=== PATIENT | female | born 1950 | race Caucasian/White ===

== ENCOUNTER 2024-05-24 01:12 | Observation (INO) | payer MEDICARE, OTHER, SELFPAY ==
[2024-05-23 23:23] VITALS: BP 141/94
[2024-05-23 23:24] VITALS: BP 141/94; BMI 27.0
--- NOTE | 2024-05-23 23:43 | ED.GENMED ---
History of Present Illness
General
Chief Complaint: DVT/Possible Blood Clot
Time Seen by Provider: 05/23/24 23:32
History of Present Illness
History of Present Illness:
TIME OF INITIAL ENCOUNTER: 11:50 PM
HPI: The patient came in because of an abnormal ultrasound that showed a DVT in the right lower extremity. The patient had wrist surgery about 6 weeks ago and also was placed in a knee immobilizer to the right lower extremity at that time. She
developed right lower extremity pain and swelling and had an ultrasound that was abnormal. She has no shortness of breath.
EXAM:
GENERAL: Well appearing in no distress
HEENT: Moist oral mucosa
NEUROLOGIC: Excellent strength all extremities, no obvious coordination deficits
PSYCHIATRIC: Appropriate mental status, normal insight and judgement
EXTREMITIES: Splint to the left wrist noted, slightly tight compartments with edema and faint erythema diffusely to the right lower extremity
SKIN: No rash, no lesions
NUMBER AND COMPLEXITY OF PROBLEMS ADDRESSED AT THE ENCOUNTER
� Chronic conditions affecting care: High blood pressure, breast cancer
� Acute Exacerbation and/or Progression of Chronic Illness: This is an acute problem
� Differential Diagnosis includes: DVT, the patient has no shortness of breath that would suggest that she has a PE
AMOUNT AND/OR COMPLEXITY OF DATA TO BE REVIEWED AND ANALYZED
� I performed an independent evaluation of and my interpretation is:
EKG:
CT:
X-rays:
Laboratory Studies: White count and hemoglobin are normal, chemistries unremarkable, coags normal
Other:
� Review of other/old records: I reviewed the records from [facility] when patient had extensive orthopedic injuries
� Clinical information was obtained by an independent historian: None needed
� Prescriptions/Medications Considered but not given:
� Further testing considered but not performed:
RISK OF COMPLICATIONS AND/OR MORBIDITY OR MORTALITY OF PATIENT MANAGEMENT
� Social determinants of health affecting care:
� Discussion with other providers: I discussed case with hematology on-call who suggested that this patient could be managed either with heparin or as an outpatient.
� Escalation of care including admission/observation vs risk of discharge considered: Consider just discharging with a DOAC however the patient also reports that she is concerned if her prescription plan will cover this. I am
also concerned that this is a proximal occlusive clot with abnormal right lower extremity findings on exam. Was going to place on heparin however Dr. Lunsford recommends Lovenox instead.
ANY OTHER UPDATES:
Phy Exam
Physical Exam
Physical Exam:
See HPI
Course
Orders/Labs/Results
Orders:
Orders
05/23/24 23:42
Complete Blood Count/With Diff Urgent
Comprehensive Metabolic Panel Urgent
Protime/PTT Urgent
05/24/24 00:16
Heparin 5,500 units IV NOW STA
Pharmacy Request to Place See Dose Instructions PO NOW STA
Discontinue all Active Warfarin orders?: Yes
05/24/24 00:30
Heparin 91832 Units/250 ml 25,000 units in 250 ml IV PER PROTOCOL
Weight to be used for heparin protocol in kilograms (kg):: 69.1
Protocol:: DVT/PE
PTT Goal Range to be used:: PTT 73 to 111 seconds
Order type:: Initial
INITIAL Infusion Dose (UNITS/KG/hr) & then follow protocol:: 18 units/kg/hr
Infusion Dose in UNITS/hr & then follow protocol (UNITS/hr):: 1,200
INFUSION RATE in mL/hr & then follow protocol (mL/hr):: 12
For DVT/PE algorithm, re-bolus for low PTT?: Yes
PTT less than or equal to 64 seconds:: Re-bolus 80 units/kg (max 10,000units). Increase by 300 units/hr
(+ 3mL/hr)
PTT 64.1 to 72.9 seconds:: Re-bolus 40 units/kg (max 5,000 units). Increase by 100 units/hr
(+ 1mL/hr)
PTT 73 to 111 seconds:: Target Range. No change in rate.
PTT 111.1 to 130.9 seconds:: Decrease rate by 100 units/hr (- 1 mL/hr)
PTT 131 to 199.9 seconds:: HOLD for 1 hr. Then decrease by 200 units/hr (- 2mL/hr)
PTT greater than or equal to 200 seconds:: HOLD for 2 hrs & Notify Provider. Then decrease by 300 units/hr
(- 3mL/hr)
Lab follow-up:: Each change, PTT q6h until 2 consecutive are therapeutic. Then
PTT daily.
05/24/24 00:57
Admit/Transfer Patient As Directed
Co-Sign Provider:
Level of Care: Observation services
Assign to:: Medical/Surgical
Physician / Group: hospitalist
Diagnosis: DVT
PRN Pain Medication Management As Directed
May give lesser potent ordered pain med per pt: Yes
preference::
Protocol:: Medication orders for pain may be administered in a
manner that supports deferring to patient preference
when the pt is:
- Requesting an ordered lesser potent pain medication.
Least to most potent pain medications are defined
as: acetaminophen < NSAID < tramadol < opioids
(morphine, oxycodone, hydromorphone).
- Requesting a lesser dose of the same medication IF
ORDERED.
- Requesting a less intrusive route of administration
if both routes are prescribed by the provider (PO <
IV).
05/24/24 00:58
Code Status As Directed
Resuscitation Status: Full Code
05/24/24 01:00
Enoxaparin Sodium [Lovenox] 80 mg SC NOW STA
Pharmacy Request to Place See Dose Instructions IV DIRECTED
05/24/24 02:00
Flush (0.9% Sodium Chloride) [Flush (Nss)] See Dose Instructions IV PER PROTOCOL
Abnormal Lab Results
05/23/24
23:42
RBC 4.13 L 10^6/uL
(4.20-5.40)
Hct 36.6 L %
(37.0-47.0)
Creatinine 0.5 L mg/dL
(0.6-1.0)
Glucose 103 H mg/dl
(70-99)
05/23/24 23:42
05/23/24 23:42
Vital Signs
Initial and Last Documented VS:
Initial Vital Signs
BP
141/94
05/23/24 23:23
Last Documented Vital Signs
Temp Pulse Resp BP Pulse Ox
36.5 C 73 12 142/78 97
05/23/24 23:24 05/24/24 00:45 05/24/24 00:45 05/24/24 00:00 05/24/24 00:45
*Critical Care Note
Total Time (30-74mins, 75-104mins- exclusive of procedures): Not Applicable
ED Attending Note
-
Portions of this chart may have been created with voice recognition software.� Occasional wrong word or��sound alike� substitutions may have occurred due to the inherent limitations of voice recognition software.
Discharge Plan
Departure
Patient Disposition: Admit
Date of Disposition: 05/24/24
Time of Disposition: 00:19
Presentation/result/management discussed w/ accepting MD/DO: Hospitalist
Discharge Problem:
Deep vein thrombosis
Prescriptions:
No Action
anastrozole 1 mg Tablet
1 mg PO DAILY
polyethylene glycol 3350 [Miralax] 17 gram Powder In Packet
17 g PO DAILY
oxycodone 5 mg Tablet
5 mg PO Q4H PRN (Reason: moderate pain)
docusate sodium 100 mg Capsule
100 mg PO BID 30 Days Qty: 60 0RF
baclofen 5 mg Tablet
5 mg PO TIDPRN PRN (Reason: muscle spasms) 30 Days Qty: 90 0RF
lidocaine 4 % Adhesive Patch,Medicated
1 patch topical DAILY 30 Days Qty: 30 0RF
enoxaparin 40 mg/0.4 mL Syringe
40 mg SC QPM 30 Days Qty: 12 0RF
baclofen 5 mg Tablet
5 mg PO HS 30 Days Qty: 30 0RF
alum-mag hydroxide-simeth [Mag-Al Plus] 200-200-20 mg/5 mL Suspension
30 ml PO QIDPRN PRN (Reason: reflux symptoms) 30 Days Qty: 3000 0RF
pantoprazole 20 mg Tablet,Delayed Release (Dr/Ec)
20 mg PO DAILY 30 Days Qty: 30 0RF
gabapentin 100 mg Capsule
100 mg PO TID 30 Days Qty: 90 0RF
multivitamin with folic acid [Tab-A-Carol] 400 mcg Tablet
1 tab PO DAILY 30 Days Qty: 30 0RF
acetaminophen 325 mg Tablet
650 mg PO Q4HPRN PRN (Reason: mild pain) 30 Days Qty: 90 0RF
cyanocobalamin (vitamin B-12) 1,000 mcg Tablet
1,000 mcg PO DAILY 30 Days Qty: 30 0RF
celecoxib [Celebrex] 200 mg Capsule
200 mg PO DAILY Qty: 0 0RF
cholecalciferol (vitamin D3) 25 mcg (1,000 unit) Capsule
25 mcg PO DAILY Qty: 0 0RF
duloxetine [Cymbalta] 20 mg Capsule,Delayed Release(Dr/Ec)
40 mg PO DAILY Qty: 0 0RF
Referrals:
Diallo Molina DO [Family Provider] -
Interventions
Interventions:
*Risk Screen - Suicide Last Done: 05/23/24 23:24
*General Assessment Last Done: 05/23/24 23:24
*Neglect/Abuse Screening Last Done: 05/23/24 23:24
*ED COVID-19 Vaccine History Last Done: 05/23/24 23:24
ED- Cardiac Assessment Last Done: 05/23/24 23:49
ED- Pulmonary Assessment Last Done: 05/23/24 23:50
ED-Peripheral Vascular Assessment Last Done: 05/23/24 23:50
ED-Skin Assessment Last Done: 05/23/24 23:50
Discharge Date and Time
Print Language: SYRIAC
[2024-05-23 23:54] LABS: % Basophils 0.3 % (0-2); % Eosinophils 3.2 % (0-6); % Immature Granulocytes 0.2 % (0-0.5); % Neutrophils 54.3 % (42.2-75.2); Absolute Eosinophils 0.2 10^3/uL (0-0.7); Absolute Lymphocytes 2.2 10^3/uL (1.2-3.4); Absolute Monocytes 0.6 10^3/uL (0.1-0.6); Absolute Neutrophils 3.6 10^3/uL (1.4-6.5); Hematocrit 36.6 % (37.0-47.0); Hemoglobin 12.5 g/dL (12.0-16.0); Mean Corp Hgb Conc. 34.2 g/dL (33.0-37.0); Mean Corpuscular Hgb 30.3 pg (27.0-31.0); Mean Corpuscular Volume 88.6 fL (81.0-99.0); Mean Platelet Volume 9.6 fL (7.4-10.4); Nucleated Red Blood Cells % 0 %; Platelet Count 262 10^3/uL (130-400); Red Blood Cell Count 4.13 10^6/uL (4.20-5.40); White Blood Cell Count 6.7 10^3/uL (4.8-10.8)
[2024-05-24] VITALS (9 sets, daily range): BP systolic 107–143; BP diastolic 66–82
[2024-05-24 00:03] LABS: INR 0.97; PT 13.2 Sec (11.4-14.6)
[2024-05-24 00:10] LABS: ALT (SGPT) 16 U/L (0-35); AST (SGOT) 20 U/L (14-36); Albumin 4.6 g/dl (3.5-5.0); Alkaline Phosphatase 117 U/L (38-126); Blood Urea Nitrogen 12 mg/dl (7-17); Calcium 9.6 mg/dl (8.4-10.2); Carbon Dioxide 26 mmol/L (22-30); Chloride 103 mmol/L (98-107); Estimated Creatinine Clearance 74 ml/min; Glucose 103 mg/dl (70-99); Sodium 138 mmol/L (135-145); Total Bilirubin 0.6 mg/dl (0.2-1.3); Total Protein 7.6 g/dl (6.3-8.2); eGFR > 60.00
--- NOTE | 2024-05-24 00:46 | HPS.HSE ---
Family Physician
-
Family Physician: Diallo Molina,
Chief Complaint
-
Right lower extremity swelling, DVT
History of Present Illness
This is a 74-year-old with past medical history significant for vertigo, hypertension, hyperlipidemia, nephrolithiasis, history of breast cancer status post lumpectomy and XRT, GERD, recent fall with multifocal trauma including a right patella
fracture, right wrist fracture left wrist fracture and bilateral shoulder injuries will presents to the emergency department from care home for swelling of the right lower extremity in the setting of approximately 1 months of immobilization.
Patient had an immobilization nonstop for the past 6 weeks for a patella fracture that was managed nonoperatively. She was on enoxaparin for about 4 weeks and then discontinued. Patient stated that she just had the immobilizer removed today and
she still has about 1 weeks ago for rehab. She has not had any vertigo recently. She denies any head injuries or history of GI bleed.
She had an outpatient ultrasound that showed nonocclusive thrombus within the common femoral vein as well as the distal right superficial femoral vein, occlusive thrombus in the femoral vein. She has no chest pain or shortness of breath.
Here in the emergency department she was afebrile, blood pressure was 140/90 with a pulse of 76 satting 98% on room air. CBC was unremarkable. Electrolytes BUN/creatinine were stable. No acute abnormalities noted.
Medical History
Past Medical History
Past Medical History: Reports CAD (Breast cancer status post lumpectomy), COPD (Emphysema, prior smoker not on home O2), HTN and Other (Nephrolithiasis, vertigo)
Past Surgical History: Reports Orthopedic
Social History
Tobacco: Smoker
Alcohol: Occasional
Drug: None
Personal:
Living: With Family (Currently in rehab after a fall, planning to live with family after completion of rehab)
Family History
Family History: Not pertinent
Allergies / Home Medications
Allergies reflects when Allergies were last updated in [facility].
Home Medications with original date entered in [facility]
Allergy/Medication List:
Allergies
Allergy/AdvReac Type Severity Reaction Status Date / Time
bee venom protein (honey bee) Allergy Intermediate Anaphylaxis Verified 05/23/24 23:23
Home Medications
anastrozole 1 mg tablet 1 mg PO DAILY 03/30/24
oxycodone 5 mg tablet 5 mg PO Q4H PRN moderate pain 03/30/24
polyethylene glycol 3350 17 gram oral powder packet (Miralax) 17 g PO DAILY 03/30/24
acetaminophen 325 mg tablet 650 mg (2 x 325 mg) PO Q4HPRN PRN mild pain 30 days #90 tabs 04/07/24
aluminum-mag hydroxide-simethicone 200 mg-200 mg-20 mg/5 mL oral susp (Mag-Al Plus) 30 ml PO QIDPRN PRN reflux symptoms 30 days #3,000 mL 04/07/24
baclofen 5 mg tablet 5 mg PO HS spasms 30 days #30 tabs 04/07/24
baclofen 5 mg tablet 5 mg PO TIDPRN PRN muscle spasms 30 days #90 tabs 04/07/24
celecoxib 200 mg capsule (Celebrex) 200 mg PO DAILY Pain #0 caps 04/07/24
cholecalciferol (vitamin D3) 25 mcg (1,000 unit) capsule 25 mcg PO DAILY Supplement #0 caps 04/07/24
cyanocobalamin (vitamin B-12) 1,000 mcg tablet 1,000 mcg PO DAILY Supplement 30 days #30 tabs 04/07/24
docusate sodium 100 mg capsule 100 mg PO BID Constipation 30 days #60 caps 04/07/24
duloxetine 20 mg capsule,delayed release (Cymbalta) 40 mg (2 x 20 mg) PO DAILY Mental Health/Anxiety #0 caps 04/07/24
enoxaparin 40 mg/0.4 mL subcutaneous syringe 40 mg (0.4 mL) SC QPM DVT Prophylasix while in SNF 30 days #12 mL 04/07/24
gabapentin 100 mg capsule 100 mg PO TID neuropathic pain 30 days #90 caps 04/07/24
lidocaine 4 % topical patch 1 patch topical DAILY Pain 30 days #30 ea 04/07/24
multivitamin with folic acid 400 mcg tablet (Tab-A-Carol) 1 tab PO DAILY Supplement 30 days #30 tabs 04/07/24
pantoprazole 20 mg tablet,delayed release 20 mg PO DAILY Gastrointestinal issue 30 days #30 tabs 04/07/24
Review of Systems
-
History Source: Patient
EENT: Reports No Symptoms
Respiratory: Reports No Symptoms
Cardiac: Reports No Symptoms
Abdomen/GI: Reports No Symptoms
: Reports No Symptoms
Musculoskeletal: Reports Joint Swelling
Skin: Reports No Symptoms
Neurological: Reports No Symptoms
Endocrine: Reports No Symptoms
Hematologic/Lymphatic: Reports No Symptoms
Psych: Reports No Symptoms
Physical Exam
Vital Signs
Vital Signs
Temp Pulse Resp BP Pulse Ox
97.7 F 76 19 141/94 94
05/23/24 23:24 05/23/24 23:45 05/23/24 23:45 05/23/24 23:24 05/23/24 23:45
Physical Exam
General: Well Developed, Well Nourished, No Apparent Distress and Comfortable
HEENT: NormoCephalic, Anicteric, Moist mucous membranes and Atraumatic
Respiratory: Clear
Cardiac: S1/S2 and Regular Rhythm
Breast: Deferred by me
GI: Soft, Non Tender, Non Distended and Normal Bowel Sounds
Rectal: Deferred by Provider
Genito-urinary: Deferred by me
Musculoskeletal: No Clubbing, No Cyanosis and Edema, Right Lower Extremity
Skin: Warm
Neuro: AO x 3 and Nonfocal/grossly intact
Hematologic/Lymphatic: No Lymphadenopathy
Psych: Calm
Laboratory Results
-
05/23/24 23:42
05/23/24 23:42
Laboratory Results
PT 13.2 Sec (11.4-14.6) 02/04/25 23:42
INR 0.97 05/23/24 23:42
APTT Cancelled 05/24/24 00:18
Total Bilirubin 0.6 mg/dl (0.2-1.3) 05/23/24 23:42
AST 20 U/L (14-36) 05/23/24 23:42
ALT 16 U/L (0-35) 05/23/24 23:42
Alkaline Phosphatase 117 U/L (38-126) 05/23/24 23:42
Data Reviewed
-
Ultrasound: Report Reviewed by me
Lab Data: Labs Reviewed by me
Old Records: Reviewed
Impression/Plan
-
IMPRESSION:
74 F with acute occlusive R lower extremity DVT in setting of a right patellar fracture managed non-operatively with 6 weeks of immobilizer just removed yesterday. Unclear if insurance will cover DOAC. Dr Burrows Ok with DOAC.
PLAN:
1. DVT - provoked DVT
- admit to med/surg observation
- no gi bleeding risk
- still mild possible fall risk
- lovenox 1mg/kg q 12 for now, AC for 3 months
- case filler to review if patient can go home on DOAC or transitioned to coumadin
Code Status - Full Code
[2024-05-24] MEDS: LOVENOX 70 MG SC (01:43)
[2024-05-24] MEDS: COLACE 100 MG PO (07:32)
[2024-05-24] MEDS: ARIMIDEX 1 MG PO (07:32)
[2024-05-24] MEDS: THERAGRAN 1 TABLET PO (07:32)
[2024-05-24] MEDS: PROTONIX 20 MG PO (07:33)
[2024-05-24] MEDS: VITAMIN D3 (cholecalciferol) 25 MCG PO (07:33)
[2024-05-24] MEDS: NEURONTIN 100 MG PO (07:33)
[2024-05-24] MEDS: VITAMIN B-12 1000 MCG PO (07:33)
[2024-05-24] MEDS: CELEBREX 200 MG PO (07:34)
[2024-05-24] MEDS: CYMBALTA DELAYED RELEASE 40 MG PO (07:34)
[2024-05-24] MEDS: ROXICODONE 5 MG PO (07:38)
[2024-05-24] MEDS: ELIQUIS 10 MG PO (08:17)
--- NOTE | 2024-05-24 09:32 | W.PN.HOSP.TC ---
Addendum entered and electronically signed by Esthela Tan MD 05/24/24 15:45:
total DC time 45 min
Original Note:
Today's Communication/Plan
-
see A/P
Assessment / Plan
Assessment / Plan
HPI: 74-year-old with PMH vertigo, hypertension, hyperlipidemia, nephrolithiasis, history of breast cancer status post lumpectomy and XRT, GERD, recent fall with multifocal trauma including a right patella fracture, right wrist fracture, left wrist
fracture and bilateral shoulder injuries; p/w swelling of the right lower extremity in the setting of approximately 1 months of immobilization.
Patient was wearing an immobilization for the past 6 weeks for her patella fracture that was managed nonoperatively. She was on enoxaparin for about 4 weeks and then discontinued.
Patient just had the immobilizer removed the day [facility]. She had an outpatient ultrasound that showed nonocclusive thrombus within the common femoral vein as well as the distal right superficial femoral vein, occlusive thrombus in the femoral vein.
She has no chest pain or shortness of breath.
A/P:
# Acute provoked RLE DVT 2/2 immobilization from recent patella fracture
switch Lovenox 1mg/kg q12 to Eliquis (high dose 10 mg BID x7 days, then 5 mg BID for 3 months)
nurse case manager to review cost of Eliquis
# recent fall with multifocal trauma including a right patella fracture, right wrist fracture, left wrist fracture and bilateral shoulder injuries
Code Status - Full Code
updated daughter on the phone
Anticipated Discharge: Within 24 hours
Subjective/Interval History
-
Date of Service: May 24, 2024
Objective Data
-
Labs:
Laboratory Results
05/23/24 05/24/24
23:42 00:18
WBC 6.7
Hgb 12.5
Hct 36.6 L
Plt Count 262
PT 13.2
INR 0.97
APTT 26.0 Cancelled
Sodium 138
Potassium 4.0
Chloride 103
Carbon Dioxide 26
BUN 12
Creatinine 0.5 L
Glucose 103 H
Calcium 9.6
Total Bilirubin 0.6
AST 20
ALT 16
Alkaline Phosphatase 117
Vital Signs:
Vital Signs
Temp Pulse Resp BP Pulse Ox
36.5 C 68 21 122/80 94
05/23/24 23:24 05/24/24 07:15 05/24/24 07:15 05/24/24 07:00 05/24/24 03:30
Review of Systems
-
Musculoskeletal: Reports Other (R leg mild swelling )
Physical Exam
-
General: Well Developed, Well Nourished, No Apparent Distress, Comfortable and Conversant; Negative Respiratory Distress
HEENT: Normocephalic, Atraumatic, Nose Appears Normal and Ears Appear Normal; Negative Oxygen
Respiratory: Clear to Auscultation and Non Labored Respirations; Negative Accessory Resp Muscle Use
Cardiac: Regular Rhythm and S1/S2
GI: Soft, Nontender, Nondistended and Normal Bowel Sounds
Musculoskeletal: Edema, Right Lower Extrem (mild)
Skin: Warm and Dry
Neuro: Awake, Alert, Oriented and AO x 3
Psych: Calm and Intact Judgement/Insight
Data Reviewed
-
Labs: Labs Reviewed by me
--- NOTE | 2024-05-24 10:46 | CM ---
Patient from [facility] with Hx recent fall with multifocal trauma including a right patella fracture, right wrist fracture, left wrist fracture and bilateral shoulder injuries, here with Dx RLE DVT.
Met with patient who states she rotates every 6 months residing with her 3 daughters in their homes.
She was recently staying with her daughter in [facility] however will be going to daughter Clary's 2 story house in [place] when discharged from [facility], and staying in bedroom on first floor. House has 2 small steps at entrance.
She was independent prior to the fall, which she says was caused by her vertigo when bending over.
Patient says she was admitted to [facility] after the fall, then discharged to [facility] then went to [facility].
DME - RW, rollator, commode, shower bench
No prior VN
Only SNF was [place]
Prior [facility]
PCP - Dr Alejandro in [place]
Pharmacy - [facility]
CM Consult: Eliquis [facility] Check
Per [facility] ambulatory orders: cost through [facility] $562.70/month, [facility] $759.20 90 day supply
Spoke with pharmacist [facility]; she does not have patient's prescription plan info. Cost is $444.40 for 14 day supply while at [facility].
Patient says she has [facility] Pharm[facility] Plan but doesn't have her prescription card with her.
Phone call to [facility] x2; left messages requesting callback for Eliquis cost under her prescription plan --->no callback.
Patient agrees to Eliquis cost and may try to check cheapest chacon on [facility], she was given Eliquis Free Month Card.
Patient agrees to return to [facility] today by ambulance.
Phone call to Clary, patient's daughter; left message patient will be returning to [facility] today by ambulance.
Spoke with Ju, [facility];
the patient was there for short term rehab and was not on a bed hold.
She was A/O, required assist of 1 and had WBAT status.
The ph for report [phone], fax [phone].
Plan return to [facility] today by ambulance.
S
--- NOTE | 2024-05-24 11:03 | EDRN ---
report phoned to [facility] - spoke with Natalia
--- NOTE | 2024-05-24 15:36 | W.DCSUMMARY ---
Discharge Summary
Discharge Data
Date of Admission: 05/24/24
Date of Discharge: 05/24/24
-
Pending Results: No
Hospital Course
Principal Diagnosis:
Acute provoked right lower extremity (RLE) deep vein thrombosis (DVT) due to immobilization from recent fall with patella fracture
Chronic Diagnoses:�
Recent fall with multifocal trauma including right patella fracture, right wrist fracture, left wrist fracture and bilateral shoulder injuries
vertigo,
hypertension,
hyperlipidemia,
nephrolithiasis,
history of breast cancer status post lumpectomy and XRT,
GERD
Consultations:�
None
Procedures:�
None
Clinical course:�
This is a 74-year-old with past medical history as stated above, who had a recent fall resulting in right patella fracture and had been immobile with a knee immobilizer for the past several weeks, presented with right lower extremity swelling and
found to have acute provoked DVT.
Problem 1:
Acute provoked RLE DVT 2/2 immobilization from recent patella fracture.
The patient denies to any respiratory symptoms, and has good saturation 97% on exam.
She received therapeutic Lovenox SQ injection and this was changed to oral anticoagulation with Eliquis.
She has been informed to continue high-dose Eliquis at 10 mg twice daily for 7 days, then 5 mg twice daily for 3 months (given her DVT is provoked from immobility).
Cost of Eliquis is acceptable to patient.
She was cleared for discharge due to clinical stability.
As for the rest of her medical problems, they were stable during her hospital stay.
Discharge Plan
-
Patient Disposition: Skilled Nursing/SNF
Discharge Diagnosis/Procedures: R leg deep vein thrombosis due to immobilization
Condition: Fair
Diet: As tolerated
Activity: As tolerated
Driving Restrictions: Not until seen by your Dr
Blood Work: CBC in 1 week with PCP while on anticoagulation (Eliquis)
Referrals:
Diallo Molina, [Family Provider] - in less than 1 week
Additional Discharge Medication Instructions: Continue Eliquis 10 mg twice daily for 7 days, then 5 mg twice daily for 3 months
Prescriptions:
New
Eliquis 5 mg tablet
5 mg PO BID Qty: 60 0RF
Rx Instructions:
start 05/31/24, take 5 mg twice daily for 3 months
Eliquis 5 mg Tablet
10 mg PO BID 7 Days Qty: 28 0RF
oxycodone 5 mg capsule
5 mg PO BID PRN (Reason: Pain) Qty: 2 0RF
Continued
meloxicam 7.5 mg Tablet
7.5 mg PO DAILY
acetaminophen [Tylenol] 325 mg Tablet
650 mg PO Q6HPRN PRN (Reason: mild pain)
magnesium hydroxide [Milk of Magnesia] 400 mg/5 mL Suspension
2,400 mg PO [id number] PRN (Reason: constipation)
bisacodyl [Dulcolax (bisacodyl)] 10 mg Suppository
10 mg SD DAILYPRN PRN (Reason: if no bm aftr mom)
calcium carbonate [Tums] 200 mg calcium (500 mg) Tablet,Chewable
400 mg PO Q6HPRN PRN (Reason: gerd)
Fleet Enema 19-7 gram/118 mL Enema
118 ml SD DAILYPRN PRN (Reason: if no bm aftr dulcolax)
anastrozole 1 mg Tablet
1 mg PO DAILY
polyethylene glycol 3350 [Miralax] 17 gram Powder In Packet
17 g PO DAILY
docusate sodium 100 mg Capsule
100 mg PO BID 30 Days Qty: 60 0RF
baclofen 5 mg Tablet
5 mg PO TIDPRN PRN (Reason: muscle spasms) 30 Days Qty: 90 0RF
lidocaine 4 % Adhesive Patch,Medicated
1 patch topical DAILY 30 Days Qty: 30 0RF
Rx Instructions:
lower back
baclofen 5 mg Tablet
5 mg PO HS 30 Days Qty: 30 0RF
alum-mag hydroxide-simeth [Mag-Al Plus] 200-200-20 mg/5 mL Suspension
30 ml PO QIDPRN PRN (Reason: reflux symptoms) 30 Days Qty: 3000 0RF
pantoprazole 20 mg Tablet,Delayed Release (Dr/Ec)
20 mg PO DAILY 30 Days Qty: 30 0RF
gabapentin 100 mg Capsule
100 mg PO TID 30 Days Qty: 90 0RF
multivitamin with folic acid [Tab-A-Carol] 400 mcg Tablet
1 tab PO DAILY 30 Days Qty: 30 0RF
cyanocobalamin (vitamin B-12) 1,000 mcg Tablet
1,000 mcg PO DAILY 30 Days Qty: 30 0RF
cholecalciferol (vitamin D3) 25 mcg (1,000 unit) Capsule
25 mcg PO DAILY Qty: 0 0RF
duloxetine [Cymbalta] 20 mg Capsule,Delayed Release(Dr/Ec)
40 mg PO DAILY Qty: 0 0RF
Discontinued
oxycodone 5 mg Tablet
5 mg PO [id number] PRN (Reason: mod pain)
Discharge Orders:
Discharge Patient (As Directed); Ordered 05/24/24
Ordered By: Esthela Tan
Discharge Date and Time
Discharge Date/Time: 05/24/24 13:32
Print Language: BHUTANESE
== END 2024-05-24 13:32 ==
LOC: ED 01:12
PROVIDERS: Student in an Organized Health Care Education/Training Program; ADMITTING PHYSICIAN Internal Medicine; ATTENDING PHYSICIAN Internal Medicine; EMERGENCY PHYSICIAN Emergency Medicine; FAMILY PHYSICIAN Student in an Organized Health Care Education/Training Program
DX: I82.411 Acute embolism and thrombosis of right femoral vein (principal); R42 Dizziness and giddiness; I10 Essential (primary) hypertension; E78.5 Hyperlipidemia, unspecified; K21.9 Gastro-esophageal reflux disease without esophagitis; S82.001D Unspecified fracture of right patella, subsequent encounter for closed fracture with routine healing; X58.XXXD Exposure to other specified factors, subsequent encounter; I25.10 Atherosclerotic heart disease of native coronary artery without angina pectoris; J43.9 Emphysema, unspecified; F17.200 Nicotine dependence, unspecified, uncomplicated; Z87.442 Personal history of urinary calculi; Z92.3 Personal history of irradiation; Z91.030 Bee allergy status; Z79.811 Long term (current) use of aromatase inhibitors; Z79.1 Long term (current) use of non-steroidal anti-inflammatories (NSAID); Z85.3 Personal history of malignant neoplasm of breast
CPT/HCPCS: 80053; 85025; 85610; 85730; G0378

== ENCOUNTER 2024-07-17 06:51 | Outpatient (RCR) | payer MEDICARE, OTHER, SELFPAY | END 2024-07-17 23:59 | disposition home or self-care (01) | LOC: RPT 06:51 | PROVIDERS: ATTENDING PHYSICIAN Orthopaedic Surgery; FAMILY PHYSICIAN Internal Medicine | DX: S42.202D Unspecified fracture of upper end of left humerus, subsequent encounter for fracture with routine healing (principal); M25.561 Pain in right knee; Z73.6 Limitation of activities due to disability | CPT/HCPCS: 97110; 97140; 97162 ==

== ENCOUNTER → 2024-08-02 10:43 | Outpatient (REF) | payer MEDICARE, OTHER, SELFPAY | LOC: HWRAD 10:43 | PROVIDERS: ATTENDING PHYSICIAN Internal Medicine | DX: I82.463 Acute embolism and thrombosis of calf muscular vein, bilateral (principal) | CPT/HCPCS: 93971 ==

== ENCOUNTER 2024-08-14 09:43 | Outpatient (RCR) | payer MEDICARE, OTHER, SELFPAY | END 2024-08-14 23:59 | disposition home or self-care (01) | LOC: RPT 09:43 | PROVIDERS: ATTENDING PHYSICIAN Orthopaedic Surgery; FAMILY PHYSICIAN Internal Medicine | DX: S42.202D Unspecified fracture of upper end of left humerus, subsequent encounter for fracture with routine healing (principal); M25.561 Pain in right knee; Z73.6 Limitation of activities due to disability | CPT/HCPCS: 97010; 97110; 97140 ==

== ENCOUNTER 2024-08-31 09:41 | Outpatient (RCR) | payer MEDICARE, OTHER, SELFPAY | END 2024-09-04 09:26 | disposition home or self-care (01) | LOC: RPT 09:41 | PROVIDERS: ATTENDING PHYSICIAN Orthopaedic Surgery; FAMILY PHYSICIAN Internal Medicine | DX: Z47.89 Encounter for other orthopedic aftercare (principal); S42.202D Unspecified fracture of upper end of left humerus, subsequent encounter for fracture with routine healing (principal); M25.561 Pain in right knee; Z73.6 Limitation of activities due to disability; M62.81 Muscle weakness (generalized) | CPT/HCPCS: 97010; 97110 ==

== ENCOUNTER 2024-09-10 17:55 | Emergency (ER) | payer MEDICARE, OTHER, SELFPAY ==
[2024-09-10 18:01] VITALS: BP 124/92
--- NOTE | 2024-09-10 19:02 | ED.MUSCINJ ---
HPI-Injury
General
Chief Complaint: Musculo-Skeletal Complaint
Source: patient
Exam Limitations: none
Time Seen by Provider: 09/10/24 18:22
Nursing documentation reviewed up to this point in time: agreed with
History of Present Illness-Injury
Initial Injury comments:
74-year-old female with history of breast cancer, lumpectomy 2023, states it was noninvasive and needed no other treatment. She fractured her right patella in March and developed a DVT of the right calf and is on Eliquis.
She states her right leg has been 'bothering me' for the past 10 days. She did have an outpatient ultrasound at that time which was negative for any new DVTs, she does have a Bakers cyst
She made an appointment with her orthopedic doctor Dr. Machuca for September 21 because her leg has been bothering her. Today at home she lifted something heavy and felt the pain in her right knee and has been hobbling ever since with her cane due to the
pain in the knee. She states when she walks the pain is 8-9 out of 10, at rest at 6 out of 10.
Past History
Past History
ED Past Medical History: Cancer (Breast cancer with lumpectomy 2023 'noninvasive. End), HTN, Other (DVT right lower leg on Eliquis) and Other (Fracture right patella in March 2024)
Review of Systems
Review of Systems
Allergies reviewed?: Yes
All Other Systems: ROS reviewed and negative except as documented in HPI and ROS
Constitutional: Denies fever
Musculoskeletal: Reports other (Swelling and pain right knee)
Phy Exam
Physical Exam
Physical Exam:
GENERAL: No acute distress. A&Ox3.
CONSTITUTIONAL: Afebrile.
RESPIRATORY: Regular respirations, nonlabored, lungs clear.
CARDIOVASCULAR: Regular rate and rhythm, no murmurs, no rubs.
GI: Soft, nontender, normal BS
MUSCULOSKELETAL: R knee swelling with effusion. Tender. Cannot flex due to pain. Distal n/v intact. Well perfused.
SKIN: Warm, dry, pink
PSYCH: Normal mood and affect. Well kept, interactive and appropriate
NEUROLOGIC: Awake, alert and oriented. No focal neurological deficits
Injury Course
Orders/Labs/Results
Orders:
Orders
09/10/24 17:57
Knee, Right 4 or More Views [CR Knee- Right 4 Or More View*] Urgent
Comment:
Reason For Exam: injury
09/10/24 19:24
Knee Immobilizer Right-Treatme ONCE
Procedures
Incision/Drainage/Joint Aspiration
Right Lateral Knee:
Anethesia: 1% Lidocaine with Epi
Preparation: cleaned with alcohol wipe
Type of procedure: aspiration
Nature of site: other (Hemarthrosis)
How much fluid was obtained?: number in mls (10)
Fluid description: bloody
Treatment: bandaid applied
Additional information:
Rudolph wrap and knee immobilizer applied
MDM/Problems Addressed
Differential Diagnosis Includes:
Sprain, fracture, hemarthrosis, joint effusion
MDM/Problems Addressed:
74-year-old female with history of breast cancer, lumpectomy 2023, states it was noninvasive and needed no other treatment. She fractured her right patella in March and developed a DVT of the right calf and is on Eliquis.
She states her right leg has been 'bothering me' for the past 10 days. She did have an outpatient ultrasound at that time which was negative for any new DVTs, she does have a Bakers cyst
She made an appointment with her orthopedic doctor Dr. Machuca for September 21 because her leg has been bothering her. Today at home she lifted something heavy and felt the pain in her right knee and has been hobbling ever since with her cane due to the
pain in the knee. She states when she walks the pain is 8-9 out of 10, at rest at 6 out of 10.
Knee is swollen most likely hemarthrosis
X-ray of the knee reveals swelling with suprapatellar and prepatellar effusion.
7:20 PM:
Aspirated 10 mL of blood from the knee, Rudolph wrap applied, knee immobilizer applied
She has an appoint with her orthopedic doctor in 10 days, suggested she call on Wednesday morning and move the appointment up
Tylenol as needed for mild to moderate pain and hydrocodone if needed called into her pharmacy.
She has ambulated to the bathroom and back with her cane
Stable for discharge
*Critical Care Note
Total Time (30-74mins, 75-104mins- exclusive of procedures): Not Applicable
ED Attending Note
-
Portions of this chart may have been created with voice recognition software.� Occasional wrong word or��sound alike� substitutions may have occurred due to the inherent limitations of voice recognition software.
Discharge Plan
Departure
Patient Disposition: Home (Routine Discharge)
Date of Disposition: 09/10/24
Time of Disposition: 19:24
Patient with high blood pressure during this ER visit?: No
Condition: Fair
Discharge Problem:
Traumatic hemarthrosis of right knee
Instructions: Hemarthrosis (DC), Knee pain - ED discharge instructions
Prescriptions:
New
hydrocodone-acetaminophen 5-325 mg tablet
1 tab PO Q6H PRN (Reason: Pain) Qty: 10 0RF
No Action
meloxicam 7.5 mg Tablet
7.5 mg PO DAILY
acetaminophen [Tylenol] 325 mg Tablet
650 mg PO Q6HPRN PRN (Reason: mild pain)
magnesium hydroxide [Milk of Magnesia] 400 mg/5 mL Suspension
2,400 mg PO [id number] PRN (Reason: constipation)
bisacodyl [Dulcolax (bisacodyl)] 10 mg Suppository
10 mg OK DAILYPRN PRN (Reason: if no bm aftr mom)
calcium carbonate [Tums] 200 mg calcium (500 mg) Tablet,Chewable
400 mg PO Q6HPRN PRN (Reason: gerd)
Fleet Enema 19-7 gram/118 mL Enema
118 ml OK DAILYPRN PRN (Reason: if no bm aftr dulcolax)
Eliquis 5 mg tablet
5 mg PO BID Qty: 60 0RF
Rx Instructions:
start 05/31/24, take 5 mg twice daily for 3 months
Eliquis 5 mg Tablet
10 mg PO BID 7 Days Qty: 28 0RF
oxycodone 5 mg capsule
5 mg PO BID PRN (Reason: Pain) Qty: 2 0RF
anastrozole 1 mg Tablet
1 mg PO DAILY
polyethylene glycol 3350 [Miralax] 17 gram Powder In Packet
17 g PO DAILY
docusate sodium 100 mg Capsule
100 mg PO BID 30 Days Qty: 60 0RF
baclofen 5 mg Tablet
5 mg PO TIDPRN PRN (Reason: muscle spasms) 30 Days Qty: 90 0RF
lidocaine 4 % Adhesive Patch,Medicated
1 patch topical DAILY 30 Days Qty: 30 0RF
Rx Instructions:
lower back
baclofen 5 mg Tablet
5 mg PO HS 30 Days Qty: 30 0RF
alum-mag hydroxide-simeth [Mag-Al Plus] 200-200-20 mg/5 mL Suspension
30 ml PO QIDPRN PRN (Reason: reflux symptoms) 30 Days Qty: 3000 0RF
pantoprazole 20 mg Tablet,Delayed Release (Dr/Ec)
20 mg PO DAILY 30 Days Qty: 30 0RF
gabapentin 100 mg Capsule
100 mg PO TID 30 Days Qty: 90 0RF
multivitamin with folic acid [Tab-A-Carol] 400 mcg Tablet
1 tab PO DAILY 30 Days Qty: 30 0RF
cyanocobalamin (vitamin B-12) 1,000 mcg Tablet
1,000 mcg PO DAILY 30 Days Qty: 30 0RF
cholecalciferol (vitamin D3) 25 mcg (1,000 unit) Capsule
25 mcg PO DAILY Qty: 0 0RF
duloxetine [Cymbalta] 20 mg Capsule,Delayed Release(Dr/Ec)
40 mg PO DAILY Qty: 0 0RF
Referrals:
Diallo Molina DO [Family Provider] -
Zeyad Harrison MD [Active] -
Activity Restrictions/Additional Instructions:
As we discussed, wear the Rudolph wrap daily as needed for comfort, support and swelling
Wear the knee immobilizer at all times when up and around, you may remove it at bedtime
Tylenol as needed for mild to moderate pain and use the hydrocodone or Vicodin if needed for worse pain.
Call your orthopedic doctor's office Wednesday and see if they can move your appointment up from September 21 sooner
Return here at anytime for increasing swelling, pain or feeling worse in any way.
Use your walker or rollator until your knee feels better
Cold compress 20 minutes off and on today and tomorrow is much as you can
Since I drained your knee and there was a needle inserted into the skin, watch for signs of infection and if they occur return here immediately they may include increasing redness, swelling, pain, fever
Interventions
Interventions:
*Risk Screen - Suicide Last Done: 09/10/24 18:01
*General Assessment Last Done: 09/10/24 19:35
*Neglect/Abuse Screening Last Done: 09/10/24 19:35
*ED- Fall Risk Assessment Last Done: 09/10/24 19:38
*ED COVID-19 Vaccine History Last Done: 09/10/24 19:35
*Nursing Disposition Last Done: 09/10/24 19:37
ED-Musculoskeletal Assessment Last Done: 09/10/24 19:20
Discharge Date and Time
Discharge Date/Time: 09/10/24 19:38
Print Language: ESTONIAN
== END 2024-09-10 19:38 | disposition home or self-care (01) ==
LOC: EMR 17:55
PROVIDERS: EMERGENCY PHYSICIAN Emergency Medicine; FAMILY PHYSICIAN Student in an Organized Health Care Education/Training Program
DX: S83.91XA Sprain of unspecified site of right knee, initial encounter (principal); X50.9XXA Other and unspecified overexertion or strenuous movements or postures, initial encounter; I10 Essential (primary) hypertension; Z85.3 Personal history of malignant neoplasm of breast; Z86.718 Personal history of other venous thrombosis and embolism; Z79.01 Long term (current) use of anticoagulants; Z87.81 Personal history of (healed) traumatic fracture
CPT/HCPCS: 29505; 99283; 73564

== ENCOUNTER 2024-10-10 17:07 | Inpatient (IN) | payer MEDICARE, OTHER, SELFPAY ==
[2024-10-10] VITALS (9 sets, daily range): BP systolic 113–137; BP diastolic 18–97; BMI 23.8
--- NOTE | 2024-10-10 13:55 | ED.GENMED ---
History of Present Illness
General
Chief Complaint: Musculo-Skeletal Complaint
Time Seen by Provider: 10/10/24 13:54
History of Present Illness
History of Present Illness:
TIME OF INITIAL EVALUATION
- 3:40 PM
REVIEW OF OLD RECORDS
- The patient has history of DVT, high blood pressure and had right hand and left shoulder repairs in the past
Note:
CHIEF COMPLAINT(S)
Fall resulting in left hip pain.
HISTORY OF PRESENT ILLNESS
The patient is a 74-year-old female who presents with left hip pain following a fall while ascending stairs. She tripped on the last two steps and fell forward. The patient reports significant pain in the left hip. She has a history of multiple
fractures, including both wrists, a knee, and a shoulder, which occurred in March. The patient does not regularly take pain medications but took a leftover dose of oxycodone prior to EMS arrival due to uncertainty about the ambulances response
time.
PAST MEDICAL HISTORY
History of fractures in both wrists, a knee, and a shoulder.
MEDICATIONS
Took a dose of oxycodone prior to EMS arrival.
REVIEW OF SYSTEMS
* Musculoskeletal: Left hip pain. No reported head, neck, chest, or abdominal pain.
PHYSICAL EXAM
- General: Well appearing in no distress
- Head: No craniofacial trauma
- C-spine: No midline c-spine tenderness; normal AROM of C-spine
- Back: Normal AROM thoracolumbar spine
- HEENT: Moist oral mucosa, no blood
- Cardiovascular: No murmurs, normal heart rate, regular rhythm, No chest wall tenderness
- Pulmonary: No respiratory distress, breath sounds are clear and equal
- Abdomen: Soft with no peritoneal signs, no tenderness
- Neurologic: Good strength all extremities, no coordination deficits
- Psychiatric: Appropriate mental status, normal insight and judgement
- Extremities: Markedly decreased active range of motion at the left hip, she holds the left lower extremity in internal rotation at the left hip, good distal function
- Skin: No rash, no lesions
PLAN
Proceed with left hip imaging, potentially an X-ray, to evaluate for dislocation or fracture. Assess the need for additional pain management.
DIFFERENTIAL DIAGNOSIS
The Differential Diagnosis includes, in no particular order and is not limited to:
1. Hip fracture
2. Hip dislocation
3. Soft tissue injury
4. Contusion
5. Osteoarthritis exacerbation
6. Femoral neck fracture
7. Trochanteric bursitis
8. Sacral fracture
9. Labral tear
10. Muscle strain/sprain
Disposition:
SUMMARY OF ENCOUNTER
The patient presented to the emergency department following a fall that resulted in significant left hip pain. Upon independent review of the x-ray, a fracture at the top part of the femur at the hip joint was identified. Given the nature of the
injury, admission to the hospital is planned, as this type of fracture typically requires surgical intervention. The patients pain is being managed as long as there is no movement.
DISPOSITION
The patient will be admitted to the hospital for surgical intervention of the hip fracture.
INDEPENDENT REVIEW OF LABS AND INTERPRETATION OF TESTS
An x-ray of the hip was obtained and independently reviewed, revealing a fracture at the top of the femur where it connects with the hip.
MEDICAL DECISION MAKING
Chronic conditions affecting care include the patients history of multiple fractures. Differential diagnoses considered were hip fracture and others related to traumatic injury. Data reviewed includes imaging which confirmed the fracture. The use of
surgery is considered necessary given the complexity and nature of the fracture.
PATHOLOGIES TO CONSIDER
Hip fracture.
RADIOLOGY
- X-ray shows left intertrochanteric fracture
EKG
-
LABS
- Other than mild leukocytosis, CBC and chemistries relatively unremarkable
UPDATE
- 'A long time' after she was given narcotic analgesia per nursing, she did desat. Chest x-ray was obtained
- I discussed case with Laura initially as she has noted Laura however they recommend that she be cared for by the on-call team which is [facility] orthopedics�I sent a message to Dr. Chu
- Dr. Modi for admission
Past History
Past History
ED Past Medical History: Cancer (Breast cancer with lumpectomy 2023noninvasive. End), HTN, Other (DVT right lower leg on Eliquis) and Other (Fracture right patella in March 2024)
Phy Exam
Physical Exam
Physical Exam:
See HPI
Course
Orders/Labs/Results
Orders:
Orders
10/10/24 13:48
Hip, Left 2-3 Views [CR Hip - LT w/wo Pel 2-3 Vw*] Urgent
Comment:
Reason For Exam: status post fall with shortening and rotation
Include a pelvis x-ray?: Yes
10/10/24 13:58
HYDROmorphone [Dilaudid] 0.5 mg IV NOW STA
Ondansetron Injectable [Zofran] 4 mg IV NOW STA
10/10/24 14:41
Basic Metabolic Panel Urgent
Complete Blood Count/With Diff Urgent
10/10/24 14:58
CXR2 [CR Chest - 2 Views ] Urgent
Comment:
Reason For Exam: shortness of breath
Abnormal Lab Results
10/10/24
14:41
WBC 13.9 H 10^3/uL
(4.8-10.8)
Abs Immat Gran (auto) 0.1 H 10^3/uL
(0-0.05)
Absolute Neuts (auto) 11.3 H 10^3/uL
(1.4-6.5)
Absolute Monos (auto) 0.9 H 10^3/uL
(0.1-0.6)
Immature Gran % 0.6 H %
(0-0.5)
Neutrophils % 81.4 H %
(42.2-75.2)
Lymphocytes % 10.9 L %
(20.5-51.1)
Chloride 109 H mmol/L
(98-107)
Glucose 121 H mg/dl
(70-99)
10/10/24 14:41
10/10/24 14:41
Vital Signs
Initial and Last Documented VS:
Initial Vital Signs
Pulse Resp Pulse Ox
102 14 92
10/10/24 13:48 10/10/24 13:48 10/10/24 13:48
Last Documented Vital Signs
Temp Pulse Resp BP Pulse Ox
36.4 C 89 17 126/91 95
10/10/24 13:51 10/10/24 14:55 10/10/24 14:55 10/10/24 14:55 10/10/24 14:55
*Pulse Oximetry
SaO2: 92
Oxygen Mode of Delivery: Room air
Patient hypoxic: no
Comment: Borderline low oxygen
*Critical Care Note
Total Time (30-74mins, 75-104mins- exclusive of procedures): Not Applicable
ED Attending Note
-
Portions of this chart may have been created with voice recognition software.� Occasional wrong word or��sound alike� substitutions may have occurred due to the inherent limitations of voice recognition software.
Discharge Plan
Departure
Patient Disposition: Admit
Date of Disposition: 10/10/24
Time of Disposition: 15:36
Presentation/result/management discussed w/ accepting MD/DO: Hospitalist
Discharge Problem:
Closed intertrochanteric fracture of left femur
Prescriptions:
No Action
meloxicam 7.5 mg Tablet
7.5 mg PO DAILY
acetaminophen [Tylenol] 325 mg Tablet
650 mg PO Q6HPRN PRN (Reason: mild pain)
magnesium hydroxide [Milk of Magnesia] 400 mg/5 mL Suspension
2,400 mg PO [id number] PRN (Reason: constipation)
bisacodyl [Dulcolax (bisacodyl)] 10 mg Suppository
10 mg ND DAILYPRN PRN (Reason: if no bm aftr mom)
calcium carbonate [Tums] 200 mg calcium (500 mg) Tablet,Chewable
400 mg PO Q6HPRN PRN (Reason: gerd)
Fleet Enema 19-7 gram/118 mL Enema
118 ml ND DAILYPRN PRN (Reason: if no bm aftr dulcolax)
Eliquis 5 mg tablet
5 mg PO BID Qty: 60 0RF
Rx Instructions:
start 05/31/24, take 5 mg twice daily for 3 months
Eliquis 5 mg Tablet
10 mg PO BID 7 Days Qty: 28 0RF
oxycodone 5 mg capsule
5 mg PO BID PRN (Reason: Pain) Qty: 2 0RF
hydrocodone-acetaminophen 5-325 mg tablet
1 tab PO Q6H PRN (Reason: Pain) Qty: 10 0RF
anastrozole 1 mg Tablet
1 mg PO DAILY
polyethylene glycol 3350 [Miralax] 17 gram Powder In Packet
17 g PO DAILY
docusate sodium 100 mg Capsule
100 mg PO BID 30 Days Qty: 60 0RF
baclofen 5 mg Tablet
5 mg PO TIDPRN PRN (Reason: muscle spasms) 30 Days Qty: 90 0RF
lidocaine 4 % Adhesive Patch,Medicated
1 patch topical DAILY 30 Days Qty: 30 0RF
Rx Instructions:
lower back
baclofen 5 mg Tablet
5 mg PO HS 30 Days Qty: 30 0RF
alum-mag hydroxide-simeth [Mag-Al Plus] 200-200-20 mg/5 mL Suspension
30 ml PO QIDPRN PRN (Reason: reflux symptoms) 30 Days Qty: 3000 0RF
pantoprazole 20 mg Tablet,Delayed Release (Dr/Ec)
20 mg PO DAILY 30 Days Qty: 30 0RF
gabapentin 100 mg Capsule
100 mg PO TID 30 Days Qty: 90 0RF
multivitamin with folic acid [Tab-A-Carol] 400 mcg Tablet
1 tab PO DAILY 30 Days Qty: 30 0RF
cyanocobalamin (vitamin B-12) 1,000 mcg Tablet
1,000 mcg PO DAILY 30 Days Qty: 30 0RF
cholecalciferol (vitamin D3) 25 mcg (1,000 unit) Capsule
25 mcg PO DAILY Qty: 0 0RF
duloxetine [Cymbalta] 20 mg Capsule,Delayed Release(Dr/Ec)
40 mg PO DAILY Qty: 0 0RF
Interventions
Interventions:
*Risk Screen - Suicide Last Done: 10/10/24 13:51
*General Assessment Last Done: 10/10/24 13:51
*Neglect/Abuse Screening Last Done: 10/10/24 13:51
*ED- Fall Risk Assessment Last Done: 10/10/24 13:51
*ED COVID-19 Vaccine History Last Done: 10/10/24 13:51
ED-Musculoskeletal Assessment Last Done: 10/10/24 13:51
Discharge Date and Time
Print Language: BELARUSIAN
[2024-10-10] MEDS: DILAUDID 0.5 MG IV ×3 (14:04→20:50)
[2024-10-10] MEDS: ZOFRAN 4 MG IV (14:05)
[2024-10-10 15:03] LABS: Hematocrit 38.2 % (37.0-47.0); Hemoglobin 12.7 g/dL (12.0-16.0); Mean Corp Hgb Conc. 33.2 g/dL (33.0-37.0); Mean Corpuscular Volume 90.7 fL (81.0-99.0); Nucleated Red Blood Cells % 0 %; Platelet Count 296 10^3/uL (130-400); Red Cell Dist. Width 13.5 % (11.5-14.5)
[2024-10-10 15:15] LABS: Blood Urea Nitrogen 12 mg/dl (7-17); Calcium 9.1 mg/dl (8.4-10.2); Carbon Dioxide 23 mmol/L (22-30); Chloride 109 mmol/L (98-107); Estimated Creatinine Clearance 75 ml/min; Glucose 121 mg/dl (70-99); Potassium 3.8 mmol/L (3.5-5.1); Sodium 138 mmol/L (135-145); eGFR > 60.00
--- NOTE | 2024-10-10 16:31 | HPS.HSE ---
Family Physician
-
Family Physician: Diallo Molina DO
Chief Complaint
-
Lt hip pain s.p fall
History of Present Illness
74F HX fractures in both wrists, a knee, and a shoulder in Dec , Acute provoked right lower extremity (RLE) deep vein thrombosis pw
- left hip pain following a fall while ascending stairs.
Medical History
Past Medical History
Past Medical History: Reports CAD (Breast cancer status post lumpectomy), COPD (Emphysema, prior smoker not on home O2), HTN and Other (Nephrolithiasis, vertigo)
Past Surgical History: Reports Orthopedic
Social History
Tobacco: Smoker
Alcohol: Occasional
Drug: None
Personal:
Living: With Family (Currently in rehab after a fall, planning to live with family after completion of rehab)
Family History
Family History: Not pertinent
Allergies / Home Medications
Allergies reflects when Allergies were last updated in SMART.
Home Medications with original date entered in SMART
Allergy/Medication List:
Allergies
Allergy/AdvReac Type Severity Reaction Status Date / Time
bee venom protein (honey bee) Allergy Intermediate Anaphylaxis Verified 05/23/24 23:23
Home Medications
anastrozole 1 mg tablet 1 mg PO DAILY 03/30/24
oxycodone 5 mg tablet 5 mg PO Q4H PRN moderate pain 03/30/24
polyethylene glycol 3350 17 gram oral powder packet (Miralax) 17 g PO DAILY 03/30/24
acetaminophen 325 mg tablet 650 mg (2 x 325 mg) PO Q4HPRN PRN mild pain 30 days #90 tabs 04/07/24
aluminum-mag hydroxide-simethicone 200 mg-200 mg-20 mg/5 mL oral susp (Mag-Al Plus) 30 ml PO QIDPRN PRN reflux symptoms 30 days #3,000 mL 04/07/24
baclofen 5 mg tablet 5 mg PO HS spasms 30 days #30 tabs 04/07/24
baclofen 5 mg tablet 5 mg PO TIDPRN PRN muscle spasms 30 days #90 tabs 04/07/24
celecoxib 200 mg capsule (Celebrex) 200 mg PO DAILY Pain #0 caps 04/07/24
cholecalciferol (vitamin D3) 25 mcg (1,000 unit) capsule 25 mcg PO DAILY Supplement #0 caps 04/07/24
cyanocobalamin (vitamin B-12) 1,000 mcg tablet 1,000 mcg PO DAILY Supplement 30 days #30 tabs 04/07/24
docusate sodium 100 mg capsule 100 mg PO BID Constipation 30 days #60 caps 04/07/24
duloxetine 20 mg capsule,delayed release (Cymbalta) 40 mg (2 x 20 mg) PO DAILY Mental Health/Anxiety #0 caps 04/07/24
enoxaparin 40 mg/0.4 mL subcutaneous syringe 40 mg (0.4 mL) SC QPM DVT Prophylasix while in SNF 30 days #12 mL 04/07/24
gabapentin 100 mg capsule 100 mg PO TID neuropathic pain 30 days #90 caps 04/07/24
lidocaine 4 % topical patch 1 patch topical DAILY Pain 30 days #30 ea 04/07/24
multivitamin with folic acid 400 mcg tablet (Tab-A-Carol) 1 tab PO DAILY Supplement 30 days #30 tabs 04/07/24
pantoprazole 20 mg tablet,delayed release 20 mg PO DAILY Gastrointestinal issue 30 days #30 tabs 04/07/24
Review of Systems
-
Constitutional: Reports No Symptoms
EENT: Reports No Symptoms
Respiratory: Reports No Symptoms
Cardiac: Reports No Symptoms
Abdomen/GI: Reports No Symptoms
: Reports No Symptoms
Musculoskeletal: Reports See HPI
Skin: Reports No Symptoms
Neurological: Reports No Symptoms
Endocrine: Reports No Symptoms
Hematologic/Lymphatic: Reports No Symptoms
Psych: Reports No Symptoms
Physical Exam
Vital Signs
Vital Signs
Temp Pulse Resp BP Pulse Ox
97.6 F 89 17 126/91 95
10/10/24 13:51 10/10/24 14:55 10/10/24 14:55 10/10/24 14:55 10/10/24 14:55
Physical Exam
General: Well Developed, Well Nourished and No Apparent Distress
HEENT: NormoCephalic, Moist mucous membranes and Atraumatic
Respiratory: Clear
Cardiac: S1/S2 and Regular Rhythm; No Murmur or Rub
GI: Soft, Non Tender, Non Distended and Normal Bowel Sounds; No Organomegaly
Rectal: Deferred by Provider
Musculoskeletal: No Clubbing, No Cyanosis and No Edema
Skin: No Rash
Neuro: Nonfocal/grossly intact
Laboratory Results
-
10/10/24 14:41
10/10/24 14:41
Data Reviewed
-
Diagnostic Radiology: Report Reviewed by me
Lab Data: Labs Reviewed by me
Old Records: Reviewed
Impression/Plan
-
Vital Signs
Temp Pulse Resp BP Pulse Ox
97.6 F 89 17 126/91 95
10/10/24 13:51 10/10/24 14:55 10/10/24 14:55 10/10/24 14:55 10/10/24 14:55
Abnormal Lab Results
10/10/24
14:41
WBC 13.9 H
Abs Immat Gran (auto) 0.1 H
Absolute Neuts (auto) 11.3 H
Absolute Monos (auto) 0.9 H
Immature Gran % 0.6 H
Neutrophils % 81.4 H
Lymphocytes % 10.9 L
Chloride 109 H
Glucose 121 H
NEG CXR
Lt Hip XR
Slightly impacted left intertrochanteric fracture with varus angulation.
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
Last hospitalist admission: 05/24/24 - 05/24/24
Principal Diagnosis:
Acute provoked right lower extremity (RLE) deep vein thrombosis (DVT) due to immobilization from recent fall with patella fracture
Chronic Diagnoses:
Recent fall with multifocal trauma including right patella fracture, right wrist fracture, left wrist fracture and bilateral shoulder injuries
vertigo,
hypertension,
hyperlipidemia,
nephrolithiasis,
history of breast cancer status post lumpectomy and XRT,
GERD
ASSESSMENT & PLAN
Pending Rx reconciliation
Left intertrochanteric fracture with varus angulation.
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
- benefits of ORIF outweigh periop risk
- Fx set protocol
- NPO after MN
- [facility] ortho consulted
HX provoked RLE DVT 2/2 immobilization from recent patella fracture
- Hold Eliquis
Other HX
vertigo,
hypertension,
hyperlipidemia,
nephrolithiasis,
history of breast cancer status post lumpectomy and XRT,
GERD
DVT Px: SCD
Code: Full
IP MS
--- NOTE | 2024-10-10 17:38 | EDRN ---
this RN called the receiving unit and notified them that paper report was going to be tubed up
--- NOTE | 2024-10-10 18:25 | PTCARENOTE ---
Pt received from the ED via stretcher. Transport was w/o incident. Pt is AAOx3, HRR, lungs are clear, resp. easy. VSS, Pt is afebrile. Pt admits to moderate to severe pain left hip/leg. Will medicate for pain as ordered. Pt instructed on plan of
care, Pt verbalized understanding of instructions. Call tran is within reach.
[2024-10-10] MEDS: SENOKOT PO (20:17)
[2024-10-10] MEDS: COLACE PO (20:17)
[2024-10-10] MEDS: TYLENOL 650 MG PO ×2 (20:18→23:05)
[2024-10-10] MEDS: NEURONTIN 100 MG PO (20:18)
--- NOTE | 2024-10-10 22:21 | PTCARENOTE ---
Pt daughter brought in pts weekly pill organizer. Pt independently took her dose of Anastrozole 1mg PO HS. Pt instructed to not take any meds in organizer and organizer was placed on counter in room for daughter to take home tomorrow. Instructed pt
to tell her daughter to bring the barcode/pill bottle in for the Anastrozole as it is NF. HIRAL Graham notified and aware. Care remains ongoing.
[2024-10-10] MEDS: ROXICODONE 5 MG PO (23:06)
[2024-10-11] VITALS (11 sets, daily range): BP systolic 92–155; BP diastolic 63–95
[2024-10-11] MEDS: BENADRYL ELIXIR 12.5 MG PO (00:39)
[2024-10-11] MEDS: NSS 1000 IV (02:07)
[2024-10-11] MEDS: TYLENOL PO ×3 (03:13→19:39)
[2024-10-11] MEDS: DILAUDID 0.5 MG IV ×6 (03:50→17:49)
--- NOTE | 2024-10-11 07:48 | W.PN.HOSP.TC ---
Today's Communication/Plan
-
pain control
NPO for ORIF today
Eliquis on hold for procedure
Low intermediate risk, risk is not prohibitive, potential benefits outweigh risk
Assessment / Plan
Assessment / Plan
Physical Exam
General: mild moderate distress d/t pain
HEENT: NormoCephalic, Moist mucous membranes and Atraumatic, hard of hearing
Respiratory: Clear
Cardiac: S1/S2 and Regular Rhythm; No Murmur or Rub
GI: Soft, Non Tender, Non Distended and Normal Bowel Sounds
Musculoskeletal: No Clubbing, No Cyanosis and No Edema, LLE shorter than RLE
Skin: No Rash
Neuro: AOx3 conversant coherent
Psych: Calm
74F RLE DVT Eliquis CAD hx multiple fx's COPD HTN hx breast ca here with left hip fracture.
Left intertrochanteric fracture with varus angulation.
Bilateral protrusion acetabulum with secondary degenerative sclerosis and subchondral cystic changes.
- benefits of ORIF outweigh periop risk
- Fx set protocol
- [facility] ortho consult appreciated NPO for ORIF today
HX provoked RLE DVT 2/2 immobilization from recent patella fracture
- Hold Eliquis
Other HX
vertigo,
hypertension,
hyperlipidemia,
nephrolithiasis,
history of breast cancer status post lumpectomy and XRT,
GERD
DVT Px: SCD
Code: Full
IP MS
I spent a total of 45 minutes with the patient or on the floor. More than 50% of this time involved counseling and coordination of care.
Anticipated Discharge: > 48 hours
Subjective/Interval History
-
Date of Service: October 11, 2024
Alert conversant coherent. Pain remains significant despite recent IV dilaudid. NPO awaiting ORIF with orthopedic later today.
Objective Data
-
Vital Signs:
Vital Signs
Temp Pulse Resp BP Pulse Ox
97.8 F 109 18 120/78 92
10/10/24 23:00 10/10/24 23:00 10/10/24 23:00 10/10/24 23:00 10/10/24 23:00
I&O
10/10/24 10/11/24 10/12/24
06:59 06:59 06:59
Output Total 850 / 850
Balance -850 / -850
[2024-10-11] MEDS: NEURONTIN 100 MG PO ×2 (07:58→20:56)
[2024-10-11] MEDS: TYLENOL 650 MG PO ×2 (07:59→20:56)
[2024-10-11] MEDS: SENOKOT PO (07:59)
[2024-10-11] MEDS: COLACE PO (08:00)
--- NOTE | 2024-10-11 08:23 | W.PN.UPDATE ---
Update Note
Progress Note Update
Patient seen on AM rounds. Full consult note to follow.
Patient sustained a left intertrochanteric femur fracture in a fall at home. I recommend proceeding with a left hip cephalomedullary nail. The risks, benefits, alternatives, recovery process and potential complications were discussed in detail. She
would like to proceed with surgery. Surgical and blood consent signed and placed on patient chart. We will proceed with surgery this afternoon under the direction of Dr. Chu.
--NPO until surgery.
--NWB to LLE until surgery.
--Abx and irrigation ordered to OR.
--T+S ordered.
--- NOTE | 2024-10-11 09:39 | CON.ORTHO ---
Consultation
-
Date/Time Consultation Requested: 10/10/2024; time unknown
Date/Time Consultation Performed: 10/11/2024; 0715
Requesting Provider: unknown
Performing Provider: Edie Dowell PA-C for Dr. Jason Chu
Reason for Consultation: Left intertrochanteric femur fracture
Consultation - Orthopedics
History
Ms. Garcia is a 74 year old female with PMH of CAD, breast CA s/p lumpectomy, COPD, HTN and vertigo. She reports her vertigo results in occasional falls, and she was treated for fractures of her wrists, shoulder and knee this past March. She
underwent a right wrist ORIF, and her other fractures were treated non-operatively. Unfortunately, she did sustain an acute provoked RLE DVT thereafter and has been on Eliquis since. She recently saw her family life counselor who gave her the ok to gradually
wean from the Eliquis, and she has been taking 5 mg daily for the last few days. She reports she was walking into her house yesterday when she tripped and landed on her left side. She reports immediate onset of pain. She was brought to ED where
x-rays revealed an intertrochanteric femur fracture. She endorses some mild aching about the hip. She denies pain elsewhere at present.
She reports she lives with her daughter and son-in-law. She typically ambulates with the assistance of a cane or walker.
Allergies / Home Medications
Allergy/AdvReac Type Severity Reaction Status Date / Time
bee venom protein (honey bee) Allergy Anaphylaxis Verified 10/10/24 17:42
�Medication �Instructions �Recorded
acetaminophen 500 mg tablet 500 mg PO DAILYPRN PRN mild pain 10/10/24
(Tylenol Extra Strength)
anastrozole 1 mg tablet 1 mg PO HS 10/10/24
apixaban 5 mg tablet (Eliquis) 5 mg PO DAILY 10/10/24
baclofen 5 mg tablet 5 mg PO HS PRN muscle spasm 10/10/24
cholecalciferol (vitamin D3) 25 25 mcg PO DAILY 10/10/24
mcg (1,000 unit) tablet
cyanocobalamin (vitamin B-12) 1,000 mcg PO DAILY 10/10/24
1,000 mcg tablet
diphenhydramine HCl 25 mg tablet 12.5 mg PO HS PRN sleep 10/10/24
duloxetine 20 mg capsule,delayed 40 mg PO NOON 10/10/24
release
gabapentin 100 mg capsule 100 mg PO BID 10/10/24
omeprazole 20 mg tablet,delayed 10 mg PO DAILY 10/10/24
release
oxycodone 5 mg tablet 10 mg PO ONCE PRN severe pain 10/10/24
Vital Signs / Lab Results
Temp Pulse Resp BP Pulse Ox
98.0 F 87 15 97/63 91
10/11/24 07:40 10/11/24 07:40 10/11/24 07:40 10/11/24 07:40 10/11/24 07:40
10/10/24 14:41
10/10/24 14:41
XR Left Hip IMPRESSION:
Slightly impacted left intertrochanteric fracture with varus angulation.
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
Directed exam of the left hip reveals no obvious erythema, ecchymosis or lesions. Tenderness about the lateral and anterior hip. Thigh soft and compressible. ROM deferred secondary to known fracture. Positive log roll. Calf soft and nontender.
Patient able to wiggle toes, plantar and dorsiflex ankle. NVID.
Assessment / Plan
Left intertrochanteric femur fracture
--Unfortunately, Ghada sustained an intertrochanteric femur fracture in her fall. I recommend a left hip cephalomedullary nail for fixation of her fracture. The risks, benefits, alternatives, recovery process and potential complications were
discussed in detail. She would like to proceed with surgery. Surgical and blood consents are signed and on patient chart. This will be performed today under the direction of Dr. Chu.
--NPO until surgery.
--NWB to LLE until surgery.
--Pain control prn. Ice for edema control.
--Abx and irrigation ordered to OR.
--T+S ordered.
--Orthopedics will continue to follow along.
--- NOTE | 2024-10-11 09:59 | CM ---
Reviewed the chart notes and spoke with the patient at the bedside. The patient resides with her daughter in a two story home with two steps to enter via garage. Patient has a first floor bedroom and bath. The patient has a rolling walker and
shower chair. The patient has had [facility] in the past. Patient has been to [facility] and [facility] in the past. The patient is scheduled for the OR this afternoon. The patient confirmed her pharmacy of choice is [facility] [address] continues to be
available to patient/family and is monitoring medical plan for needs at discharge.
Plan: Discharge plans will depend on the patient's progress.
--- NOTE | 2024-10-11 18:10 | PTCARENOTE ---
Pt received from the PACU via bed. Transport was w/o incident. Pt is AAOx3, HRR, lungs are clear, resp. easy. Pt with 3 Antibacterial dressings to left leg: Hip, Thigh,& above knee. All 3 dressings w/ a scant amt. of bloody drainage. Surrounding
skin intact. Pt denies pain at this time (received dilaudid in PACU prior to floor transfer). Denies nausea. VSS, Pt is afebrile. Pt instructed on plan of care. Pt verbalized understanding of instructions. Call tran is within reach.
[2024-10-11] MEDS: CYMBALTA DELAYED RELEASE PO (19:39)
[2024-10-11] MEDS: NSS IV (19:41)
[2024-10-11] MEDS: COLACE 100 MG PO (20:56)
[2024-10-11] MEDS: SENOKOT 17.2 MG PO (20:56)
[2024-10-11] MEDS: ROXICODONE 10 MG PO (21:18)
[2024-10-11] MEDS: ANCEF 5 IV (22:06)
[2024-10-11] MEDS: ARIMIDEX 1 MG PO (22:06)
[2024-10-12] VITALS (7 sets, daily range): BP systolic 92–127; BP diastolic 62–70; PULSE 125–127; O2SAT 94
[2024-10-12] MEDS: TYLENOL PO (00:51)
[2024-10-12] MEDS: ANCEF 5 IV (05:07)
[2024-10-12] MEDS: ROXICODONE 10 MG PO ×2 (05:08→21:28)
[2024-10-12] MEDS: TYLENOL 650 MG PO ×5 (05:08→21:26)
[2024-10-12] MEDS: MAALOX 30 ML PO (05:28)
[2024-10-12 07:07] LABS: Hematocrit 28.0 % (37.0-47.0); Hemoglobin 9.5 g/dL (12.0-16.0); Mean Corp Hgb Conc. 33.9 g/dL (33.0-37.0); Mean Corpuscular Volume 90.9 fL (81.0-99.0); Platelet Count 206 10^3/uL (130-400); Red Cell Dist. Width 13.5 % (11.5-14.5)
[2024-10-12 07:10] LABS: Blood Urea Nitrogen 9 mg/dl (7-17); Calcium 8.6 mg/dl (8.4-10.2); Carbon Dioxide 23 mmol/L (22-30); Chloride 108 mmol/L (98-107); Estimated Creatinine Clearance 75 ml/min; Glucose 123 mg/dl (70-99); Magnesium 2.3 mg/dl (1.6-2.3); Potassium 4.5 mmol/L (3.5-5.1); Sodium 135 mmol/L (135-145); eGFR > 60.00
--- NOTE | 2024-10-12 07:28 | W.PN.ORTHO ---
Today's Communication / Plan
-
74 yo F POD1 left hip cephalomedullary nail under the direction of Dr. Chu
--Touch down weight bearing to LLE with assistive device x6 weeks. We appreciate the assistance of PT/OT.
--Modified dose of Eliquis for 3 days, then resume usual dose.
--Pain control prn. Ice and elevation for edema control.
--Maintain surgical dressing until 7-10 days post-op. Staple removal at 2 weeks post-op.
--Case management consult for dc planning.
--Hgb 9.5 this AM. Continue to monitor.
--Orthopedics will continue to follow along.
Assessment
.
Distal Motor Intact: Yes
Dressing:
Clean, dry and intact.
Plan
.
Surgery / Date: L hip gamma nail, Vlad, 10/11
DVT Prophylaxis: Other (Eliquis, modified dose for 3 days, then resume usual dose)
Activity:
Out of bed.
PT/OT
Subjective
.
.:
Ms. Garcia is POD1 following her left hip gamma nail performed yesterday by Dr. Chu. She is resting comfortably in bed this morning, and reports her pain is well controlled at present.
Vital Signs and Labs
.
Vital Signs and Labs:
Lab Results
10/12/24 06:16
10/12/24 06:16
Temp Pulse Resp BP Pulse Ox
98 F 96 16 92/62 95
10/12/24 03:01 10/12/24 03:01 10/12/24 03:01 10/12/24 03:01 10/12/24 03:01
Physical Exam
-
Directed exam of the left lower extremity reveals small amount of dried blood on proximal bandage, otherwise bandages are clean, dry and intact. No significant tenderness about the hip. Thigh soft and compressible. Calf soft and nontender. Patient
able to wiggle toes, plantar and dorsiflex ankle. NVID.
[2024-10-12] MEDS: SENOKOT 17.2 MG PO ×2 (08:23→21:26)
[2024-10-12] MEDS: ELIQUIS 2.5 MG PO ×2 (08:23→21:25)
[2024-10-12] MEDS: PROTONIX 20 MG PO (08:23)
[2024-10-12] MEDS: NEURONTIN 100 MG PO ×2 (08:23→21:26)
[2024-10-12] MEDS: COLACE 100 MG PO ×2 (08:23→21:25)
--- NOTE | 2024-10-12 09:17 | W.PN.HOSP.TC ---
Today's Communication/Plan
-
pain control
PT/OT
Eliquis reduced dose
wound care
Assessment / Plan
Assessment / Plan
Physical Exam
General: mild moderate distress d/t pain
HEENT: NormoCephalic, Moist mucous membranes and Atraumatic, hard of hearing
Respiratory: Clear
Cardiac: S1/S2 and Regular Rhythm; No Murmur or Rub
GI: Soft, Non Tender, Non Distended and Normal Bowel Sounds
Musculoskeletal: No Clubbing, No Cyanosis and No Edema, LLE dressing clean dry intact
Skin: No Rash
Neuro: AOx3 conversant coherent
Psych: Calm
74F RLE DVT Eliquis CAD hx multiple fx's COPD HTN hx breast ca here with left hip fracture.
Left intertrochanteric fracture with varus angulation.
Bilateral protrusion acetabulum with secondary degenerative sclerosis and subchondral cystic changes.
Multifactorial due to mechanical fall and age -related osteoporosis
-[facility] ortho consult appreciated s/p ORIF 10/11/24
-Touch down weight bearing to LLE with assistive device x6 weeks
-Eliquis
-touch down weight bearing LLE assist device 6wks
-Maintain surgical dressing until 7-10 days post-op. Staple removal at 2 weeks post-op.
- cont pain control
- PT/OT
HX provoked RLE DVT 2/2 immobilization from recent patella fracture
-Eliquis resumed post-procedure 2.5 mg BID
Other HX
vertigo,
hypertension,
hyperlipidemia,
nephrolithiasis,
history of breast cancer status post lumpectomy and XRT,
GERD
DVT Px: SCD
Code: Full
IP MS
I spent a total of 45 minutes with the patient or on the floor. More than 50% of this time involved counseling and coordination of care.
Anticipated Discharge: 24 - 48 hours
Subjective/Interval History
-
Date of Service: October 12, 2024
no acute distress, appears comfortable at rest. Pain relatively well controlled with current pain regimen.
Objective Data
-
Labs:
Laboratory Results
10/12/24
06:16
WBC 9.6
Hgb 9.5 L D
Hct 28.0 L
Plt Count 206 D
Sodium 135
Potassium 4.5
Chloride 108 H
Carbon Dioxide 23
BUN 9
Creatinine 0.5 L
Glucose 123 H
Calcium 8.6
Vital Signs:
Vital Signs
Temp Pulse Resp BP Pulse Ox
98.5 F 105 16 93/65 93
10/12/24 07:50 10/12/24 07:50 10/12/24 07:50 10/12/24 07:50 10/12/24 07:50
I&O
10/11/24 10/12/24 10/13/24
06:59 06:59 06:59
Intake Total 1220 / 1220
Output Total 850 / 850 350 / 350
Balance -850 / -850 870 / 870
[2024-10-12] MEDS: ROXICODONE 5 MG PO (10:06)
--- NOTE | 2024-10-12 11:49 | PN.CDI ---
CDI
- -
CDI:
Physician Documentation Request
Admit Date: 10/10/24 17:07
Dear Doctor Fredis,
Patient admitted with left intertrochanteric fracture s/p left hip intramedullary nailing.
ED note, ' ...presents with left hip pain following a fall while ascending stairs. She tripped on the last two steps and fell forward.'
08/16/12 Done Densitometry, 'IMPRESSION: There is osteopenia in the lumbar spine which has a mild increased fracture risk.'
Please provide in your note the etiology/etiologies of the left hip fracture:
Multifactorial due to mechanical fall and age -related osteoporosis
Mechanical fall only
Other
Use of terms such as suspected, likely, concern for, or probable (associated with a specific diagnosis that is being evaluated, monitored, or treated as if it exists) are acceptable and can be coded in the inpatient setting, when documented at the
time of discharge.
Thank you,
Tena TOVAR,RN,CCDS
CDI Specialist
Available via tiger text
Please use your independent medical judgment in providing your response.
[2024-10-12 11:58] LABS: Hematocrit 27.4 % (37.0-47.0); Hemoglobin 9.2 g/dL (12.0-16.0)
[2024-10-12] MEDS: CYMBALTA DELAYED RELEASE 40 MG PO (13:02)
[2024-10-12] MEDS: DILAUDID 0.5 MG IV (13:08)
--- NOTE | 2024-10-12 15:39 | CM ---
Reviewed the chart notes and spoke with the patient at the bedside. Patient requested referral be sent to [facility] Referral sent via [facility]. Patient understands may not be appropriate for acute rehab. If [facility] unable to accept patient
agreeable to a referral being sent to [facility]. CM continues to be available to patient/family and is monitoring medical plan for needs at discharge.
Plan: Discharge to either acute rehab or snf when medically stable. No auth required.
[2024-10-12] MEDS: ARIMIDEX 1 MG PO (21:27)
[2024-10-13] MEDS: TYLENOL PO ×2 (00:34→05:27)
[2024-10-13] MEDS: ROXICODONE 10 MG PO ×3 (01:53→21:29)
--- NOTE | 2024-10-13 05:47 | W.PN.ORTHO ---
Today's Communication / Plan
-
74 yo F POD2 left hip cephalomedullary nail under the direction of Dr. Chu
--Touch down weight bearing to LLE with assistive device x6 weeks. We appreciate the assistance of PT/OT.
--xrays ordered for possible new injury- crepitus with motion reported.
--Modified dose of Eliquis
--Pain control prn. Ice and elevation for edema control.
--Maintain surgical dressing until 7-10 days post-op. Staple removal at 2 weeks post-op.
--Case management consult for dc planning.
--Orthopedics will continue to follow along.
Assessment
.
Distal Motor Intact: Yes
Dressing:
Clean, dry and intact.
Plan
.
Surgery / Date: L hip gamma nail, Vlad, 10/11
Activity:
Out of bed.
PT/OT
Subjective
.
.:
Patient resting comfortably.
Vital Signs and Labs
.
Vital Signs and Labs:
Temp Pulse Resp BP Pulse Ox
98.3 F 91 16 110/70 96
10/12/24 23:00 10/12/24 23:00 10/12/24 23:00 10/12/24 23:00 10/12/24 23:00
[2024-10-13 06:31] LABS: Hematocrit 27.0 % (37.0-47.0); Hemoglobin 9.0 g/dL (12.0-16.0); Mean Corp Hgb Conc. 33.3 g/dL (33.0-37.0); Mean Corpuscular Volume 92.2 fL (81.0-99.0); Platelet Count 202 10^3/uL (130-400); Red Cell Dist. Width 13.5 % (11.5-14.5)
[2024-10-13 06:55] LABS: Blood Urea Nitrogen 9 mg/dl (7-17); Calcium 8.6 mg/dl (8.4-10.2); Carbon Dioxide 28 mmol/L (22-30); Chloride 108 mmol/L (98-107); Estimated Creatinine Clearance 75 ml/min; Glucose 94 mg/dl (70-99); Magnesium 2.2 mg/dl (1.6-2.3); Potassium 4.3 mmol/L (3.5-5.1); Sodium 138 mmol/L (135-145); eGFR > 60.00
--- NOTE | 2024-10-13 06:56 | W.PN.HOSP.TC ---
Today's Communication/Plan
-
pain control
PT/OT
cont Eliquis dvt ppx dosage, monitor H&H
discharge planning SNF rehab
Assessment / Plan
Assessment / Plan
Physical Exam
General: mild moderate distress d/t pain
HEENT: NormoCephalic, Moist mucous membranes and Atraumatic, hard of hearing
Respiratory: Clear
Cardiac: S1/S2 and Regular Rhythm; No Murmur or Rub
GI: Soft, Non Tender, Non Distended and Normal Bowel Sounds
Musculoskeletal: No Clubbing, No Cyanosis and No Edema, LLE dressing clean dry intact
Skin: No Rash
Neuro: AOx3 conversant coherent
Psych: Calm
74F RLE DVT Eliquis CAD hx multiple fx's COPD HTN hx breast ca here with left hip fracture.
Left intertrochanteric fracture with varus angulation.
Bilateral protrusion acetabulum with secondary degenerative sclerosis and subchondral cystic changes.
Multifactorial due to mechanical fall and age -related osteoporosis
-[facility] ortho consult appreciated s/p ORIF 10/11/24
-Touch down weight bearing to LLE with assistive device x6 weeks
-Eliquis
-touch down weight bearing LLE assist device 6wks
-Maintain surgical dressing until 7-10 days post-op. Staple removal at 2 weeks post-op.
- cont pain control
- PT/OT appreciated SNF rehab
-10/13 repeat hip and femur X-ray reports noted concern for possible new fracture, reviewed with Orthopedic who assessed unlikely/ruled out
Acute Blood Loss Anemia post-procedure
monitor H&H, no need for transfusion at this time
HX provoked RLE DVT 2/2 immobilization from recent patella fracture
-per patient, her sheet folder was tapering her off Eliquis prior to current events
-Eliquis resumed post-procedure 2.5 mg BID, would continue on this dose for orthopedic dvt ppx and follow up with [facility] prior to discontinuing
Other HX
vertigo,
hypertension,
hyperlipidemia,
nephrolithiasis,
history of breast cancer status post lumpectomy and XRT,
GERD
DVT Px: SCD
Code: Full
IP MS
I spent a total of 45 minutes with the patient or on the floor. More than 50% of this time involved counseling and coordination of care.
Anticipated Discharge: 24 - 48 hours
Subjective/Interval History
-
Date of Service: October 13, 2024
Pain persists, tolerable with current pain regimen. No bowel movement but reports flatus denies abd pain nausea
Objective Data
-
Labs:
Laboratory Results
10/13/24
06:12
WBC 7.2
Hgb 9.0 L
Hct 27.0 L
Plt Count 202
Sodium 138
Potassium 4.3
Chloride 108 H
Carbon Dioxide 28
BUN 9
Creatinine 0.5 L
Glucose 94
Calcium 8.6
Vital Signs:
Vital Signs
Temp Pulse Resp BP Pulse Ox
98.3 F 91 16 110/70 96
10/12/24 23:00 10/12/24 23:00 10/12/24 23:00 10/12/24 23:00 10/12/24 23:00
I&O
10/11/24 10/12/24 10/13/24
06:59 06:59 06:59
Intake Total 1220 / 1220 240 / 240
Output Total 850 / 850 350 / 350
Balance -850 / -850 870 / 870 240 / 240
[2024-10-13] MEDS: PROTONIX 40 MG PO (07:10)
[2024-10-13 07:30] VITALS: BP 114/73
[2024-10-13] MEDS: TYLENOL 650 MG PO ×4 (08:26→20:46)
[2024-10-13] MEDS: ELIQUIS 2.5 MG PO ×2 (08:26→20:46)
[2024-10-13] MEDS: COLACE 100 MG PO ×2 (08:26→20:46)
[2024-10-13] MEDS: NEURONTIN 100 MG PO ×2 (08:26→20:46)
[2024-10-13] MEDS: SENOKOT 17.2 MG PO ×2 (08:26→20:46)
[2024-10-13] MEDS: DILAUDID 0.5 MG IV ×2 (08:28→13:12)
[2024-10-13] MEDS: CYMBALTA DELAYED RELEASE 40 MG PO (12:07)
[2024-10-13 13:30] VITALS: PULSE 121; O2SAT 94
[2024-10-13 13:38] VITALS: PULSE 121; O2SAT 94
--- NOTE | 2024-10-13 15:27 | CM ---
Reviewed the chart notes and spoke with the patient at the bedside. Updated patient that [facility] declined her. Discussed SNF options. Patient requested a referral be made to [facility]. Referral sent with [facility] in [facility]. continues to be
available to patient/family and is monitoring medical plan for needs at discharge.
Plan: Discharge to SNF/rehab once medically stable and bed secured. No auth required.
[2024-10-13 15:30] VITALS: BP 99/67
--- NOTE | 2024-10-13 17:10 | PN.CDI ---
CDI
- -
CDI:
Physician Documentation Request
Admit Date: 10/10/24 17:07
Dear Doctor Fredis,
Patient admitted with left intertrochanteric fracture s/p left hip intramedullary nailing.
Hgb documented below:
Laboratory Tests
10/10/24 10/12/24 10/13/24
14:41 06:16 06:12
Hgb 12.7 9.5 L D 9.0 L
Based on the above, please clarify, in your progress note, which of the following is the most likely diagnosis you are evaluating, monitoring and/or treating?
Acute blood loss anemia
Insignificant abnormal lab findings
Other
Use of terms such as suspected, likely, concern for, or probable (associated with a specific diagnosis that is being evaluated, monitored, or treated as if it exists) are acceptable and can be coded in the inpatient setting, when documented at the
time of discharge.
Thank you,
Tena TOVAR,RN,CCDS
CDI Specialist
Available via tiger text
Please use your independent medical judgment in providing your response.
[2024-10-13] MEDS: ARIMIDEX 1 MG PO (21:28)
[2024-10-13 23:27] VITALS: BP 100/66
[2024-10-14] MEDS: TYLENOL PO ×3 (01:25→23:12)
[2024-10-14] MEDS: ROXICODONE 10 MG PO ×4 (02:06→20:36)
[2024-10-14 06:50] LABS: Hematocrit 27.2 % (37.0-47.0); Hemoglobin 9.0 g/dL (12.0-16.0); Mean Corp Hgb Conc. 33.1 g/dL (33.0-37.0); Mean Corpuscular Volume 92.5 fL (81.0-99.0); Platelet Count 232 10^3/uL (130-400); Red Cell Dist. Width 13.6 % (11.5-14.5)
[2024-10-14 07:08] LABS: Blood Urea Nitrogen 11 mg/dl (7-17); Calcium 8.6 mg/dl (8.4-10.2); Carbon Dioxide 27 mmol/L (22-30); Chloride 107 mmol/L (98-107); Estimated Creatinine Clearance 75 ml/min; Glucose 110 mg/dl (70-99); Magnesium 2.1 mg/dl (1.6-2.3); Potassium 4.3 mmol/L (3.5-5.1); Sodium 137 mmol/L (135-145); eGFR > 60.00
[2024-10-14 07:30] VITALS: BP 115/74
[2024-10-14] MEDS: PROTONIX 40 MG PO (08:11)
--- NOTE | 2024-10-14 08:17 | W.PN.UPDATE ---
Update Note
Progress Note Update
Ms. Garcia is POD3 following her left hip cephalomedullary nail performed by Dr. Chu. She is resting comfortably in bed this morning. She does endorse significant discomfort about her lateral thigh. She is concerned about the alignment of her
left lower extremity.
Directed exam of the left lower extremity reveals surgical dressings with slight strikethrough of dried blood, otherwise dry and intact. She has significant valgus alignment at her left knee. She is mildly tender about her left hip. No tenderness
about her knee. Calf soft and nontender. Patient able to wiggle toes, plantar and dorsiflex ankle. NVID.
Hgb 9.0 this AM.
74 yo F POD3 left hip cephalomedullary nail under the direction of Dr. Chu
--Touch down weight bearing to LLE with assistive device x6 weeks. We appreciate the assistance of PT/OT.
--X-rays yesterday revealed stable position of her fracture. These do reveal significant lateral knee joint space narrowing which would account for the valgus alignment of her lower extremity.
--Modified dose of Eliquis.
--Pain control prn. Ice and elevation for edema control.
--Maintain surgical dressing until 7-10 days post-op. Staple removal at 2 weeks post-op. If yousuf removed at SNF, follow up outpatient with new x-rays at 4 weeks post-op.
--Case management consult for dc planning. [facility] SNF placement.
--Patient is stable post-operatively from an orthopedic standpoint. Orthopedics will sign off for now. Please reach out with any additional orthopedic questions or concerns.
--- NOTE | 2024-10-14 09:35 | W.PN.HOSP.TC ---
Today's Communication/Plan
-
cont pain control
bowel regimen
PT/OT
monitor H&H
discharge planning SNF rehab
Assessment / Plan
Assessment / Plan
Physical Exam
General: mild moderate distress d/t pain
HEENT: NormoCephalic, Moist mucous membranes and Atraumatic, hard of hearing
Respiratory: Clear
Cardiac: S1/S2 and Regular Rhythm; No Murmur or Rub
GI: Soft, Non Tender, Non Distended and Normal Bowel Sounds
Musculoskeletal: No Clubbing, No Cyanosis and No Edema, LLE dressing clean dry intact
Skin: No Rash
Neuro: AOx3 conversant coherent
Psych: Calm
74F RLE DVT Eliquis CAD hx multiple fx's COPD HTN hx breast ca here with left hip fracture.
Left intertrochanteric fracture with varus angulation.
Bilateral protrusion acetabulum with secondary degenerative sclerosis and subchondral cystic changes.
Multifactorial due to mechanical fall and age -related osteoporosis
-[facility] ortho consult appreciated s/p ORIF 10/11/24
-Touch down weight bearing to LLE with assistive device x6 weeks
-Eliquis 2.5 mg BID
-touch down weight bearing LLE assist device 6wks
-Maintain surgical dressing until 7-10 days post-op. Staple removal at 2 weeks post-op.
- cont pain control, pain regimen adjusted to 15 mg Q4HPRN severe pain, 10 mg Q4HPRN moderate pain, Dilaudid 0.5 mg Q3HPRN severe breakthrough pain
- PT/OT appreciated SNF rehab
-10/13 repeat hip and femur X-ray reports noted concern for possible new fracture, reviewed with Orthopedic assessed unlikely/ruled out
Constipation
cont bowel regimen Miralax Colace Senna
Acute Blood Loss Anemia post-procedure
monitor H&H, no need for transfusion at this time
HX provoked RLE DVT 2/2 immobilization from recent patella fracture
-per patient, her distribution specialist was tapering her off Eliquis prior to current events
-Eliquis resumed post-procedure 2.5 mg BID, would continue on this dose for orthopedic dvt ppx and follow up with [facility] prior to discontinuing
Other HX
vertigo,
hypertension,
hyperlipidemia,
nephrolithiasis,
history of breast cancer status post lumpectomy and XRT,
GERD
DVT Px: SCD
Code: Full
IP MS
I spent a total of 45 minutes with the patient or on the floor. More than 50% of this time involved counseling and coordination of care.
Anticipated Discharge: 24 - 48 hours
Subjective/Interval History
-
Date of Service: October 14, 2024
No acute distress resting comfortably in bed. Pain persists, relatively tolerable with current pain regimen. patient also reports contipation. Flatus+ no nausea. Tolerating diet.
Objective Data
-
Labs:
Laboratory Results
10/14/24
06:28
WBC 6.4
Hgb 9.0 L
Hct 27.2 L
Plt Count 232
Sodium 137
Potassium 4.3
Chloride 107
Carbon Dioxide 27
BUN 11
Creatinine 0.5 L
Glucose 110 H
Calcium 8.6
Vital Signs:
Vital Signs
Temp Pulse Resp BP Pulse Ox
98.4 F 93 18 115/74 97
10/14/24 07:30 10/14/24 07:30 10/14/24 07:30 10/14/24 07:30 10/14/24 07:30
I&O
10/13/24 10/14/24 10/15/24
06:59 06:59 06:59
Intake Total 240 / 240 840 / 840 240 / 240
Balance 240 / 240 840 / 840 240 / 240
[2024-10-14] MEDS: TYLENOL 650 MG PO ×4 (10:11→20:33)
[2024-10-14] MEDS: NEURONTIN 100 MG PO ×3 (10:11→22:06)
[2024-10-14] MEDS: ELIQUIS 2.5 MG PO ×2 (10:11→20:33)
[2024-10-14] MEDS: COLACE 100 MG PO ×2 (10:11→20:33)
[2024-10-14] MEDS: SENOKOT 17.2 MG PO ×2 (10:11→20:33)
[2024-10-14] MEDS: MIRALAX 17 GRAMS PO (13:14)
[2024-10-14] MEDS: CYMBALTA DELAYED RELEASE 40 MG PO (13:14)
[2024-10-14] MEDS: DILAUDID 0.5 MG IV (13:15)
[2024-10-14 15:10] VITALS: BP 116/71
[2024-10-14] MEDS: ARIMIDEX 1 MG PO (22:06)
[2024-10-14 23:28] VITALS: BP 109/69
[2024-10-15] MEDS: ROXICODONE 10 MG PO (05:16)
[2024-10-15] MEDS: TYLENOL 650 MG PO ×5 (05:16→20:45)
--- NOTE | 2024-10-15 06:27 | W.PN.HOSP.TC ---
Today's Communication/Plan
-
pain control
monitor H&H
B12 supplementation
PT/OT
Assessment / Plan
Assessment / Plan
Physical Exam
General: mild moderate distress d/t pain
HEENT: NormoCephalic, Moist mucous membranes and Atraumatic, hard of hearing
Respiratory: Clear
Cardiac: S1/S2 and Regular Rhythm; No Murmur or Rub
GI: Soft, Non Tender, Non Distended and Normal Bowel Sounds
Musculoskeletal: No Clubbing, No Cyanosis and No Edema, LLE dressing clean dry intact, valgus alignment LLE
Skin: No Rash
Neuro: AOx3 conversant coherent
Psych: Calm
74F RLE DVT Eliquis CAD hx multiple fx's COPD HTN hx breast ca here with left hip fracture.
Left intertrochanteric fracture with varus angulation.
Bilateral protrusion acetabulum with secondary degenerative sclerosis and subchondral cystic changes.
Multifactorial due to mechanical fall and age -related osteoporosis
-BCO ortho consult appreciated s/p ORIF 10/11/24
-Touch down weight bearing to LLE with assistive device x6 weeks
-Eliquis 2.5 mg BID
-touch down weight bearing LLE assist device 6wks
-Maintain surgical dressing until 7-10 days post-op. Staple removal at 2 weeks post-op.
- cont pain control, pain regimen adjusted to 15 mg Q4HPRN severe pain, 10 mg Q4HPRN moderate pain, Dilaudid 0.5 mg Q3HPRN severe breakthrough pain
- PT/OT appreciated SNF rehab
-10/13 repeat hip and femur X-ray reports noted concern for possible new fracture, reviewed with Orthopedic assessed unlikely/ruled out
-As per Orthopedic Valgus alignment LLE likely d/t lateral knee joint space narrowing as noted on X-ray, stable operatively from orthopedic standpoint for discharge
Constipation
cont bowel regimen Miralax Colace Senna
Acute Blood Loss Anemia post-procedure
B12 deficiency
-monitor H&H, no need for transfusion at this time
-B12 supplementation
HX provoked RLE DVT 2/2 immobilization from recent patella fracture
-per patient, her regulatory attorney was tapering her off Eliquis prior to current events
-Eliquis resumed post-procedure 2.5 mg BID, would continue on this dose for orthopedic dvt ppx and follow up with her [employer] Supervisor prior to discontinuing
Neuropathy
-home gabapentin 100 mg increased from BID to TID
Other HX
vertigo,
hypertension,
hyperlipidemia,
nephrolithiasis,
history of breast cancer status post lumpectomy and XRT,
GERD
DVT Px: SCD
Code: Full
IP MS
PT/OT appreciated SNF rehab
I spent a total of 45 minutes with the patient or on the floor. More than 50% of this time involved counseling and coordination of care.
Anticipated Discharge: 24 - 48 hours
Subjective/Interval History
-
Date of Service: October 15, 2024
Pain persists requiring dilaudid for severe breakthrough pain despite oxycodone 15mg. Reports constipation resolved.
Objective Data
-
Labs:
Laboratory Results
10/15/24
06:14
WBC Pending
Hgb Pending
Hct Pending
Plt Count Pending
Sodium Pending
Potassium Pending
Chloride Pending
Carbon Dioxide Pending
BUN Pending
Creatinine Pending
Glucose Pending
Calcium Pending
Vital Signs:
Vital Signs
Temp Pulse Resp BP Pulse Ox
98.3 F 94 16 109/69 94
10/14/24 23:28 10/14/24 23:28 10/14/24 23:28 10/14/24 23:28 10/14/24 23:28
I&O
10/13/24 10/14/24 10/15/24
06:59 06:59 06:59
Intake Total 240 / 240 840 / 840 780 / 780
Balance 240 / 240 840 / 840 780 / 780
[2024-10-15 06:50] LABS: Hematocrit 25.2 % (37.0-47.0); Hemoglobin 8.4 g/dL (12.0-16.0); Mean Corp Hgb Conc. 33.3 g/dL (33.0-37.0); Mean Corpuscular Volume 92.0 fL (81.0-99.0); Platelet Count 263 10^3/uL (130-400); Red Cell Dist. Width 13.6 % (11.5-14.5)
[2024-10-15 07:07] LABS: Blood Urea Nitrogen 10 mg/dl (7-17); Calcium 8.5 mg/dl (8.4-10.2); Carbon Dioxide 26 mmol/L (22-30); Chloride 107 mmol/L (98-107); Estimated Creatinine Clearance 75 ml/min; Glucose 105 mg/dl (70-99); Magnesium 2.0 mg/dl (1.6-2.3); Potassium 4.3 mmol/L (3.5-5.1); Sodium 137 mmol/L (135-145); eGFR > 60.00
[2024-10-15] MEDS: PROTONIX 40 MG PO (07:36)
[2024-10-15] MEDS: SENOKOT 17.2 MG PO ×2 (07:37→20:45)
[2024-10-15] MEDS: NEURONTIN 100 MG PO ×3 (07:37→21:00)
[2024-10-15] MEDS: ELIQUIS 2.5 MG PO ×2 (07:37→20:45)
[2024-10-15] MEDS: MIRALAX 17 GRAMS PO (07:37)
[2024-10-15] MEDS: COLACE 100 MG PO ×2 (07:37→20:45)
[2024-10-15 08:10] VITALS: BP 119/77
[2024-10-15 10:09] LABS: Iron 55 ug/dl (37-170)
[2024-10-15 10:19] LABS: Total Iron Binding Capacity 285 ug/dl (265-497)
[2024-10-15 10:46] LABS: Ferritin 43.1 ng/ml (11.1-264.0)
[2024-10-15 11:18] LABS: Folate 6.4 ng/ml (2.76-20); Vitamin B12 277 pg/ml (239-931)
[2024-10-15] MEDS: CYMBALTA DELAYED RELEASE 40 MG PO (12:24)
[2024-10-15] MEDS: ROXICODONE 15 MG PO ×2 (12:43→18:26)
[2024-10-15] MEDS: DILAUDID 0.5 MG IV ×2 (14:23→21:05)
[2024-10-15 16:04] VITALS: BP 119/85
[2024-10-15 16:25] VITALS: BP 119/85; PULSE 110
[2024-10-15] MEDS: ARIMIDEX 1 MG PO (21:02)
[2024-10-15 23:00] VITALS: BP 124/75
[2024-10-16] MEDS: TYLENOL 650 MG PO ×7 (00:50→23:52)
[2024-10-16] MEDS: ROXICODONE 15 MG PO ×4 (03:56→21:12)
[2024-10-16 07:30] VITALS: BP 119/71
[2024-10-16 07:37] LABS: Hematocrit 25.5 % (37.0-47.0); Hemoglobin 8.4 g/dL (12.0-16.0); Mean Corp Hgb Conc. 32.9 g/dL (33.0-37.0); Mean Corpuscular Volume 91.7 fL (81.0-99.0); Platelet Count 294 10^3/uL (130-400); Red Cell Dist. Width 13.6 % (11.5-14.5)
--- NOTE | 2024-10-16 07:47 | W.PN.HOSP.TC ---
Today's Communication/Plan
-
Continue Pain Control -- patient still in significant pain
Repeat x-rays unremarkable/stable findings, continue PT/OT. SNF placement.
Assessment / Plan
Assessment / Plan
Physical Exam
General: mild moderate distress d/t pain
HEENT: Normocephalic, Moist mucous membranes and Atraumatic, hard of hearing
Respiratory: Clear
Cardiac: S1/S2 and Regular Rhythm
GI: Soft, Non Tender, Non Distended and Normal Bowel Sounds
Musculoskeletal: No Cyanosis and No Edema, LLE dressing clean dry intact, valgus alignment LLE
Skin: Warm. Dry.
Neuro: AAOx3 conversant coherent
Psych: Calm
Assessment/Plan
74 y/o female with RLE DVT on Eliquis CAD history, multiple fractures, COPD, HTN history and breast cancer presented with left hip fracture.
Left intertrochanteric fracture with varus angulation.
Bilateral protrusion acetabulum with secondary degenerative sclerosis and subchondral cystic changes.
Multifactorial due to mechanical fall and age -related osteoporosis
-BCO ortho consult appreciated s/p ORIF 10/11/24
-Touch down weight bearing to LLE with assistive device x6 weeks
-Eliquis 2.5 mg BID
-touch down weight bearing LLE assist device 6wks
-Maintain surgical dressing until 7-10 days post-op. Staple removal at 2 weeks post-op.
- cont pain control, pain regimen adjusted to 15 mg Q4HPRN severe pain, 10 mg Q4HPRN moderate pain, Dilaudid 0.5 mg Q3HPRN severe breakthrough pain
- PT/OT appreciated SNF rehab
-10/13 repeat hip and femur X-ray reports noted concern for possible new fracture, reviewed with Orthopedic assessed unlikely/ruled out
-As per Orthopedic Valgus alignment LLE likely d/t lateral knee joint space narrowing as noted on X-ray, stable operatively from orthopedic standpoint for discharge
-On 10/16/24, patient's daughter had some concerns and was requesting to speak to the surgeon. She does not feel her mother is ready for d/c at this time, per the pt, the daughter feels that her pain is not controlled and she needs to stay because
she is not ready for SNF. The daughter refused to discuss SNF options with case management until speaking to the surgeon. Ortho mentioned lateral rotation of LLE and known significant knee deformity which he is attributing the rotation to but x-rays
were ordered for completeness--there was nothing out of the ordinary on her X-rays. Ortho thinks that severely arthritic knee and deformity is making things difficult. Working with PT at this point is the best thing to do.
Constipation
cont bowel regimen Miralax Colace Senna
Acute Blood Loss Anemia post-procedure
B12 deficiency
-monitor H&H, no need for transfusion at this time
-B12 supplementation
HX provoked RLE DVT 2/2 immobilization from recent patella fracture
-per patient, her communication electronic technician was tapering her off Eliquis prior to current events
-Eliquis resumed post-procedure 2.5 mg BID, would continue on this dose for orthopedic dvt ppx and follow up with her Advanced Practice Professional prior to discontinuing
Neuropathy
-home gabapentin 100 mg increased from BID to TID
Other HX
vertigo,
hypertension,
hyperlipidemia,
nephrolithiasis,
history of breast cancer status post lumpectomy and XRT,
GERD
DVT Px: SCD. Eliquis.
Code: Full
IP MS
PT/OT appreciated SNF rehab
Anticipated Discharge: 24 - 48 hours
Subjective/Interval History
-
Date of Service: October 16, 2024
Patient was seen and examined. She reported pain from her left hip surgery, but otherwise denied any other significant symptoms or complaints.
Objective Data
-
Labs:
Laboratory Results
10/16/24
07:03
WBC 5.7
Hgb 8.4 L
Hct 25.5 L
Plt Count 294
Sodium Pending
Potassium Pending
Chloride Pending
Carbon Dioxide Pending
BUN Pending
Creatinine Pending
Glucose Pending
Calcium Pending
Vital Signs:
Vital Signs
Temp Pulse Resp BP Pulse Ox
99 F 91 16 124/75 94
10/15/24 23:00 10/15/24 23:00 10/15/24 23:00 10/15/24 23:00 10/15/24 23:00
I&O
10/15/24 10/16/24 10/17/24
06:59 06:59 06:59
Intake Total 780 / 780 240 / 240
Balance 780 / 780 240 / 240
[2024-10-16] MEDS: VITAMIN B-12 1000 MCG PO (08:56)
[2024-10-16] MEDS: PROTONIX 40 MG PO (08:56)
[2024-10-16] MEDS: ELIQUIS 2.5 MG PO ×2 (08:56→19:50)
[2024-10-16] MEDS: SENOKOT 17.2 MG PO ×2 (08:56→19:50)
[2024-10-16] MEDS: COLACE 100 MG PO ×2 (08:56→19:50)
[2024-10-16] MEDS: NEURONTIN 100 MG PO ×3 (08:57→21:10)
[2024-10-16] MEDS: MIRALAX 17 GRAMS PO (08:57)
[2024-10-16 09:19] LABS: Blood Urea Nitrogen 9 mg/dl (7-17); Calcium 8.8 mg/dl (8.4-10.2); Carbon Dioxide 26 mmol/L (22-30); Chloride 109 mmol/L (98-107); Estimated Creatinine Clearance 75 ml/min; Glucose 95 mg/dl (70-99); Magnesium 2.1 mg/dl (1.6-2.3); Potassium 4.5 mmol/L (3.5-5.1); Sodium 139 mmol/L (135-145); eGFR > 60.00
--- NOTE | 2024-10-16 10:31 | CM ---
Addendum entered by Sandra Durán RN 10/16/24 12:36:
CM spoke with the patient and her daughter at the bedside. Patient's daughter would not provide or agree to any facilities until she speak with the patient's doctor. Ortho has signed off. Patient's RN to reach out to attending.
Original Note:
Reviewed the chart notes and spoke with the patient at the bedside. Patient stated 'her daughter will be here later this morning to discuss SNFs'. CM asked patient to contact nurse when daughter arrives. CM continues to be available to
patient/family and is monitoring medical plan for needs at discharge.
Plan: Discharge to SNF/rehab once a bed secured. No auth needed.
[2024-10-16 11:53] VITALS: BP 121/81; PULSE 107; O2SAT 97
[2024-10-16 12:42] VITALS: BP 121/81; PULSE 107; O2SAT 97
[2024-10-16] MEDS: CYMBALTA DELAYED RELEASE 40 MG PO (12:43)
--- NOTE | 2024-10-16 13:33 | PTCARENOTE ---
Addendum entered by Elsa Mora RN 10/16/24 15:01:
Per Nikolay LE, Dr. Chu unavailable to speak with daughter. Dr Lloyd made aware. Care remains ongoing.
Original Note:
Pt's daughter with concerns and requesting to speak to surgeon prior to any decision regarding SNF placement. Case management and Nikolay LE made aware. Care remains ongoing.
[2024-10-16 15:30] VITALS: BP 125/76
[2024-10-16] MEDS: ARIMIDEX 1 MG PO (21:10)
[2024-10-16 23:00] VITALS: BP 128/83
[2024-10-17] MEDS: TYLENOL 650 MG PO ×6 (04:00→22:54)
[2024-10-17 06:12] LABS: Hematocrit 27.0 % (37.0-47.0); Hemoglobin 8.9 g/dL (12.0-16.0); Mean Corp Hgb Conc. 33.0 g/dL (33.0-37.0); Mean Corpuscular Volume 92.5 fL (81.0-99.0); Platelet Count 352 10^3/uL (130-400); Red Cell Dist. Width 13.8 % (11.5-14.5)
[2024-10-17 06:36] LABS: Blood Urea Nitrogen 10 mg/dl (7-17); Calcium 9.0 mg/dl (8.4-10.2); Carbon Dioxide 23 mmol/L (22-30); Chloride 107 mmol/L (98-107); Estimated Creatinine Clearance 75 ml/min; Glucose 101 mg/dl (70-99); Magnesium 2.1 mg/dl (1.6-2.3); Potassium 4.2 mmol/L (3.5-5.1); Sodium 138 mmol/L (135-145); eGFR > 60.00
[2024-10-17 07:25] VITALS: BP 119/73
[2024-10-17] MEDS: SENOKOT 17.2 MG PO ×2 (07:31→20:11)
[2024-10-17] MEDS: COLACE 100 MG PO ×2 (07:31→20:11)
[2024-10-17] MEDS: MIRALAX 17 GRAMS PO (07:31)
[2024-10-17] MEDS: NEURONTIN 100 MG PO ×3 (07:32→22:26)
[2024-10-17] MEDS: ELIQUIS 2.5 MG PO ×2 (07:32→20:11)
[2024-10-17] MEDS: VITAMIN B-12 1000 MCG PO (07:32)
[2024-10-17] MEDS: ROXICODONE 15 MG PO ×3 (07:32→20:11)
[2024-10-17] MEDS: PROTONIX 40 MG PO (07:32)
--- NOTE | 2024-10-17 10:52 | W.PN.HOSP.TC ---
Today's Communication/Plan
-
SNF placement pending - patient is open to SNF now
Appreciate hematology input into Eliquis dosing as patient has residual DVT per her, and she was placed on prophylactic dose outpatient with goal of stopping Eliquis -- continue Eliquis at prophylactic dose or increase? Appreciate hematology input.
Assessment / Plan
Assessment / Plan
Physical Exam
General: mild moderate distress d/t pain
HEENT: Normocephalic, Moist mucous membranes and Atraumatic, hard of hearing
Respiratory: Clear
Cardiac: S1/S2 and Regular Rhythm
GI: Soft, Non Tender, Non Distended and Normal Bowel Sounds
Musculoskeletal: No Cyanosis and No Edema, LLE dressing clean dry intact, valgus alignment LLE
Skin: Warm. Dry.
Neuro: AAOx3 conversant coherent
Psych: Calm
Assessment/Plan
74 y/o female with RLE DVT on Eliquis CAD history, multiple fractures, COPD, HTN history and breast cancer presented with left hip fracture.
Left intertrochanteric fracture with varus angulation.
Bilateral protrusion acetabulum with secondary degenerative sclerosis and subchondral cystic changes.
Multifactorial due to mechanical fall and age -related osteoporosis
-BCO ortho consult appreciated s/p ORIF 10/11/24
-Touch down weight bearing to LLE with assistive device x6 weeks
-touch down weight bearing LLE assist device 6wks
-Maintain surgical dressing until 7-10 days post-op. Staple removal at 2 weeks post-op.
- cont pain control, pain regimen adjusted to 15 mg Q4HPRN severe pain, Dilaudid 0.5 mg Q3HPRN severe breakthrough pain
- PT/OT appreciated SNF rehab
-10/13 repeat hip and femur X-ray reports noted concern for possible new fracture, reviewed with Orthopedic assessed unlikely/ruled out
-As per Orthopedic Valgus alignment LLE likely d/t lateral knee joint space narrowing as noted on X-ray, stable operatively from orthopedic standpoint for discharge
-On 10/16/24: patient's daughter had some concerns and was requesting to speak to the surgeon. She does not feel her mother is ready for d/c at this time, per the pt, the daughter feels that her pain is not controlled and she needs to stay because
she is not ready for SNF. The daughter refused to discuss SNF options with case management until speaking to the surgeon. Ortho mentioned lateral rotation of LLE and known significant knee deformity which he is attributing the rotation to but x-rays
were ordered for completeness -- there was nothing out of the ordinary on her x-rays. Ortho thinks that severely arthritic knee and deformity is making things difficult. Working with PT at this point is the best thing to do.
-Per Dr. Chu on 10/17/24, he spoke to patient and patient understands there are many factors contributing to the deformity, and she understood that it will likely improve once the bone is healed and she gets ambulating.
Constipation
-Continue bowel regimen Miralax Colace Senna
Acute Blood Loss Anemia post-procedure
B12 deficiency
-monitor H&H, no need for transfusion at this time
-B12 supplementation
History of provoked RLE DVT secondary to immobilization from recent patella fracture
-per patient, her secondary teacher (at [employer]) was tapering her off Eliquis prior to current events with hip fracture, goal was to stop the Eliquis altogether b/c her secondary teacher said residual clot was below the right knee
-Eliquis resumed post-procedure 2.5 mg BID
-Given residual DVT as reported by patient, and given post hip fracture surgery state, should we just do Eliquis 5 mg BID or continue at Eliquis 2.5 mg BID prophylactic dose? SNF would cover the cost of Eliquis (patient was
concerned about cost)
-Appreciate hematology input regarding the above question
Neuropathy
-home gabapentin 100 mg increased from BID to TID
Other HX
vertigo,
hypertension,
hyperlipidemia,
nephrolithiasis,
history of breast cancer status post lumpectomy and XRT,
GERD
DVT Px: SCD. Eliquis.
Code: Full
IP MS
PT/OT appreciated SNF rehab
I called patient's daughter Clary on 10/16/24 and 10/17/24, but she did not answer the phone.
I spoke to the patient on 10/17/24 and she said she is open to obtaining a list of SNFs she can go to.
Anticipated Discharge: 24 - 48 hours
Subjective/Interval History
-
Date of Service: October 17, 2024
Patient was seen and examined. She reported pain while sitting in the chair. Per nurse, patient had a bowel movement yesterday/overnight.
Objective Data
-
Labs:
Laboratory Results
10/17/24
05:20
WBC 6.2
Hgb 8.9 L
Hct 27.0 L
Plt Count 352
Sodium 138
Potassium 4.2
Chloride 107
Carbon Dioxide 23
BUN 10
Creatinine 0.5 L
Glucose 101 H
Calcium 9.0
Vital Signs:
Vital Signs
Temp Pulse Resp BP Pulse Ox
98.7 F 89 20 119/73 95
10/17/24 07:25 10/17/24 07:25 10/17/24 07:25 10/17/24 07:25 10/17/24 07:25
I&O
10/16/24 10/17/24 10/18/24
06:59 06:59 06:59
Intake Total 240 / 240 960 / 960 900 / 900
Balance 240 / 240 960 / 960 900 / 900
[2024-10-17] MEDS: DILAUDID 0.5 MG IV (11:22)
[2024-10-17] MEDS: CYMBALTA DELAYED RELEASE 40 MG PO (12:42)
--- NOTE | 2024-10-17 14:57 | CON.ONC ---
Addendum entered and electronically signed by Isabel Zambrano MD 10/17/24 17:39:
Will sign off. Please call w/ any questions.
Addendum entered and electronically signed by Isabel Zambrano MD 10/17/24 17:39:
Patient seen and examined
Her DVT in early 2024 was provoked and below the knee. She's had >3months of full anticoagulation.
Doppler US in July showed continued occlusive clot, likely to persist chronically
She's at risk for future falls and bleeding from anticoagulation, so would favor just continuing Eliquis 2.5mg BID for now.
She should f/u with Dr. Meyer, her hematolgist/oncologist, to determine when to stop Eliquis. She's also on anastrazole for breast cancer, followed by Dr. Meyer.
Original Note:
Documented by User: ED Schrader 10/17/24 16:37
Consultation
-
Date Consultation Requested: 10/17/24
Date Consultation Performed: 10/17/24
Requesting Provider: Suleiman Lloyd
Performing Provider: Dr. Isabel Zambrano
Reason for Consultation: hx provoked RLE DVT, recommendations for post operative ppx
Impression
Impression
Fall/osteoporosis/left hip fracture s/p ORIF 10/11
ER positive breast cancer s/p lumpectomy on anastrozole
B12 deficiency -on chronic B12 supplement
post operative anemia
hx provoked RLE DVT May 2024
Plan
Plan
Provoked RLE DVT in May 2023, persistent thrombus on July 2024 repeat US for which she continued apixaban 5mg BID prior to admission and has been on 2.5mg BID post operatively. Recommend checking LE US. If occlusive thrombus persists would continue
apixaban 5mg BID until more ambulatory post operatively. If no VTE then would use apixaban 2.5mg BID for VTE ppx. Recommend close monitoring for bleeding. She has sustained at least 2 significant falls in the past year will need to continue to weigh
risk/benefit of continued anticoagulation.
pain control, post operative care per ortho
continue letrozole
OP follow up with primary leak hunter/oncologist, Dr. Cantor with [facility], for further management of breast ca and duration/dose of DOAC after discharge
Patient History
History of Present Illness
74yo F who presented with left hip pain following a fall. She was walking up the steps and had a mechanical fall. Imaging showed a slightly impacted left intertrochanteric fracture with varus angulation and bilateral protrusio acetabulum with
secondary degenerative sclerosis and subchondral cystic changes. She underwent left ORIF 10/11 c/b post operative anemia with Hgb drop from 12.7 to 9.5 and has continued to drift down to 8.9 today. Of note she had a RLE DVT in early May 2024 after a
fall with prolonged immobility secondary to patellar fracture. Her RLE US showed persistent thrombus in July 2024. She was on apixaban 5mg BID prior to admission and she has remained on apixaban 2.5mg BID dvt ppx post-operatively. She is using
gabapentin, IV hydromorphone prn, and oxycodone IR prn for pain management. She is using colace, senna, and miralax for bowel regimen.
Afebrile, no hypoxia or hypotension
Past-Medical/Surgical History
PMH CAD, Breast cancer, COPD , HTN, Nephrolithiasis, vertigo
PSH lumpectomy, patellar, ORIF
Social smoker, denies etoh or recreational drugs. Retired. Lives with family
Family hx non-contributory
Patient Medication
�Medication �Instructions �Recorded �Confirmed �Last Taken �Type
acetaminophen 500 mg tablet 500 mg PO DAILYPRN PRN mild pain 10/10/24 10/10/24 2 Days Ago History
(Tylenol Extra Strength) ~10/08/24
anastrozole 1 mg tablet 1 mg PO HS 10/10/24 10/10/24 10/09/24 History
apixaban 5 mg tablet (Eliquis) 5 mg PO DAILY 10/10/24 10/10/24 10/10/24 History
baclofen 5 mg tablet 5 mg PO HS PRN muscle spasm 10/10/24 10/10/24 10/08/24 History
cholecalciferol (vitamin D3) 25 25 mcg PO DAILY 10/10/24 10/10/24 10/10/24 History
mcg (1,000 unit) tablet
cyanocobalamin (vitamin B-12) 1,000 mcg PO DAILY 10/10/24 10/10/24 10/10/24 History
1,000 mcg tablet
diphenhydramine HCl 25 mg tablet 12.5 mg PO HS PRN sleep 10/10/24 10/10/24 10/09/24 History
duloxetine 20 mg capsule,delayed 40 mg PO NOON 10/10/24 10/10/24 10/09/24 History
release
gabapentin 100 mg capsule 100 mg PO BID 10/10/24 10/10/24 10/10/24 History
omeprazole 20 mg tablet,delayed 10 mg PO DAILY 10/10/24 10/10/24 10/10/24 History
release
oxycodone 5 mg tablet 10 mg PO ONCE PRN severe pain 10/10/24 10/10/24 10/10/24 History
Active Medications
Generic Name Dose Route Start Last Admin
Trade Name Freq PRN Reason Stop Dose Admin
Acetaminophen 650 mg 10/10/24 20:00 10/17/24 12:42
Acetaminophen 325 Mg Tablet PO 11/07/24 19:59 650 mg
Q4HWA BETTIE Administration
Al Hydrox/Mg Hydrox/Simethicone 30 ml 10/11/24 15:55 10/12/24 05:28
Mag/Al/Simethicone Suspension 30 Ml Cup PO 11/08/24 15:54 30 ml
Q4HPRN PRN Administration
indigestion
Anastrozole 1 mg 10/11/24 22:00 10/16/24 21:10
Anastrozole 1 Mg Tablet PO 11/08/24 21:59 1 mg
HS BETTIE Administration
Apixaban 2.5 mg 10/12/24 08:00 10/17/24 07:32
Apixaban (Eliquis) 2.5 Mg Tablet PO 11/09/24 07:59 2.5 mg
BID BETTIE Administration
Cyanocobalamin 1,000 mcg 10/16/24 08:00 10/17/24 07:32
Cyanocobalamin 1,000 Mcg Tablet PO 11/13/24 07:59 1,000 mcg
DAILY BETTIE Administration
Diphenhydramine HCl 12.5 mg 10/10/24 21:31 10/11/24 00:39
Diphenhydramine Elixir (25 Mg/10 Ml) Cup PO 11/07/24 21:30 12.5 mg
HSPRN PRN Administration
sleep
Docusate Sodium 100 mg 10/10/24 20:00 10/17/24 07:31
Docusate Sodium 100 Mg Capsule PO 11/07/24 19:59 100 mg
BID BETTIE Administration
Duloxetine HCl 40 mg 10/11/24 12:00 10/17/24 12:42
Duloxetine Delayed Release 20 Mg Capsule PO 11/08/24 11:59 40 mg
NOON BETTIE Administration
Gabapentin 100 mg 10/14/24 16:00 10/17/24 07:32
Gabapentin 100 Mg Capsule PO 11/11/24 15:59 100 mg
TID BETTIE Administration
Hydromorphone HCl 0.5 mg 10/10/24 17:41 10/17/24 11:22
Hydromorphone 0.5 Mg/0.5 Ml Syringe IV 10/24/24 17:40 0.5 mg
Q3HPRN PRN Administration
severe breakthrough pain
Magnesium Hydroxide 30 ml 10/10/24 18:12
Milk Of Magnesia 30 Ml Cup PO 11/07/24 18:11
DAILYPRN PRN
constipation
Ondansetron HCl 4 mg 10/11/24 15:55
Ondansetron 4 Mg/2 Ml Vial IV 11/08/24 15:54
Q6HPRN PRN
nausea/vomiting
Oxycodone HCl 15 mg 10/14/24 11:36 10/17/24 07:32
Oxycodone 15 Mg Regular Release Tablet PO 10/28/24 11:35 15 mg
Q4HPRN PRN Administration
moderate severe pain
Pantoprazole Sodium 40 mg 10/13/24 08:00 10/17/24 07:32
Pantoprazole 40 Mg Delayed Release Tablet PO 11/10/24 07:59 40 mg
DAILY BETTIE Administration
Polyethylene Glycol 17 grams 10/14/24 12:00 10/17/24 07:31
Polyethylene Glycol Powder 17 Grams Packet PO 11/11/24 11:59 17 grams
DAILY BETTIE Administration
Sennosides 17.2 mg 10/10/24 20:00 10/17/24 07:31
Sennosides (Senokot) 8.6 Mg Tablet PO 11/07/24 19:59 17.2 mg
BID BETTIE Administration
Sodium Chloride 0 flush 10/10/24 18:00
Sodium Chloride 0.9% (Flush) Syringe IV 11/07/24 17:59
PER PROTOCOL BETTIE
Tamsulosin HCl 0.4 mg 10/10/24 18:12
Tamsulosin 0.4 Mg Capsule PO 11/07/24 18:11
DAILYPRN PRN
bladder scan volume > 400 mL
Physical Exam
-
Extremities: Other (LLE dressing)
Labs
Lab Results
WBC 6.2 10^3/uL (4.8-10.8) 10/17/24 05:20
RBC 2.92 10^6/uL (4.20-5.40) L 10/17/24 05:20
Hgb 8.9 g/dL (12.0-16.0) L 10/17/24 05:20
Hct 27.0 % (37.0-47.0) L 10/17/24 05:20
MCV 92.5 fL (81.0-99.0) 10/17/24 05:20
MCH 30.5 pg (27.0-31.0) 10/17/24 05:20
MCHC 33.0 g/dL (33.0-37.0) 10/17/24 05:20
RDW 13.8 % (11.5-14.5) 10/17/24 05:20
Plt Count 352 10^3/uL (130-400) 10/17/24 05:20
MPV 9.5 fL (7.4-10.4) 10/17/24 05:20
Abs Immat Gran (auto) 0.1 10^3/uL (0-0.05) H 10/10/24 14:41
Absolute Neuts (auto) 11.3 10^3/uL (1.4-6.5) H 10/10/24 14:41
Absolute Lymphs (auto) 1.5 10^3/uL (1.2-3.4) 10/10/24 14:41
Absolute Monos (auto) 0.9 10^3/uL (0.1-0.6) H 10/10/24 14:41
Absolute Eos (auto) 0.0 10^3/uL (0-0.7) 10/10/24 14:41
Absolute Basos (auto) 0.0 10^3/uL (0-0.2) 10/10/24 14:41
Immature Gran % 0.6 % (0-0.5) H 10/10/24 14:41
Neutrophils % 81.4 % (42.2-75.2) H 10/10/24 14:41
Lymphocytes % 10.9 % (20.5-51.1) L 10/10/24 14:41
Monocytes % 6.5 % (1.7-9.3) 10/10/24 14:41
Eosinophils % 0.3 % (0-6) 10/10/24 14:41
Basophils % 0.3 % (0-2) 10/10/24 14:41
Creatinine 0.5 mg/dL (0.6-1.0) L 10/17/24 05:20
Vital Signs
Vital Signs
Temp Pulse Resp BP Pulse Ox
98.7 F 89 20 119/73 95
10/17/24 07:10/17/24 07:10/17/24 07:25 10/17/24 07:10/17/24 07:25

Documented by User: Isabel Zambrano MD 10/17/24 17:34
Plan
Plan
Provoked below knee RLE DVT in May 2023, persistent thrombus on July 2024 repeat US for which she continued apixaban 5mg BID prior to admission and has been on 2.5mg BID post operatively. Would continue apixaban 2.5mg BID for VTE ppx. Recommend
close monitoring for bleeding. She has sustained at least 2 significant falls in the past year will need to continue to weigh risk/benefit of continued anticoagulation.
pain control, post operative care per ortho
continue letrozole
OP follow up with primary leak hunter/oncologist, Dr. Cantor with [facility], for further management of breast ca and duration/dose of DOAC after discharge
[2024-10-17 14:59] VITALS: BP 149/76; PULSE 74; O2SAT 96
[2024-10-17 15:10] VITALS: BP 114/73
[2024-10-17 15:23] VITALS: BP 121/74; PULSE 113; O2SAT 97
--- NOTE | 2024-10-17 16:50 | CM ---
Reviewed the chart notes and spoke with the patient at the bedside. Patient provided two SNF names. Referrals sent. CM continues to be available to patient/family and is monitoring medical plan for needs at discharge.
Plan: Discharge to SNF/rehab once bed secured. No auth required.
[2024-10-17] MEDS: ARIMIDEX 1 MG PO (22:26)
[2024-10-17 23:19] VITALS: BP 107/71
[2024-10-18] MEDS: TYLENOL 650 MG PO ×4 (03:29→16:18)
[2024-10-18] MEDS: ROXICODONE 15 MG PO ×3 (03:29→13:35)
[2024-10-18 06:08] LABS: Hematocrit 25.6 % (37.0-47.0); Hemoglobin 8.5 g/dL (12.0-16.0); Mean Corp Hgb Conc. 33.2 g/dL (33.0-37.0); Mean Corpuscular Volume 92.8 fL (81.0-99.0); Platelet Count 363 10^3/uL (130-400); Red Cell Dist. Width 14.2 % (11.5-14.5)
[2024-10-18 06:26] LABS: Blood Urea Nitrogen 12 mg/dl (7-17); Calcium 9.0 mg/dl (8.4-10.2); Carbon Dioxide 28 mmol/L (22-30); Chloride 109 mmol/L (98-107); Estimated Creatinine Clearance 75 ml/min; Glucose 102 mg/dl (70-99); Magnesium 2.2 mg/dl (1.6-2.3); Potassium 4.4 mmol/L (3.5-5.1); Sodium 138 mmol/L (135-145); eGFR > 60.00
[2024-10-18 07:35] VITALS: BP 119/76
--- NOTE | 2024-10-18 07:59 | W.PN.HOSP.TC ---
Today's Communication/Plan
-
Discharge today
Assessment / Plan
Assessment / Plan
Physical Exam
General: mild moderate distress d/t pain
HEENT: Normocephalic, Moist mucous membranes and Atraumatic, hard of hearing
Respiratory: Clear
Cardiac: S1/S2 and Regular Rhythm
GI: Soft, Non Tender, Non Distended and Normal Bowel Sounds
Musculoskeletal: No Cyanosis and No Edema, LLE dressing clean dry intact, valgus alignment LLE
Skin: Warm. Dry.
Neuro: AAOx3 conversant coherent
Psych: Calm
Assessment/Plan
74 y/o female with RLE DVT on Eliquis CAD history, multiple fractures, COPD, HTN history and breast cancer presented with left hip fracture.
Left intertrochanteric fracture status post left hip cephalomedullary nail under the direction of Dr. Chu on 10/11/24
Significant lateral knee joint space narrowing resulting in valgus alignment of her lower extremity
Bilateral protrusion acetabulum with secondary degenerative sclerosis and subchondral cystic changes.
Multifactorial due to mechanical fall and age -related osteoporosis
-BC[facility] ortho consult appreciated s/p ORIF 10/11/24
-Touch down weight bearing to LLE with assistive device x6 weeks.
-Ice and elevation for edema control.
-Maintain surgical dressing until 7-10 days post-op. Staple removal at 2 weeks post-op. If yousuf are removed at SNF, follow up outpatient with new x-rays at 4 weeks post-op.
- cont pain control
- PT/OT appreciated SNF rehab
-10/13 repeat hip and femur X-ray reports noted concern for possible new fracture, reviewed with Orthopedic assessed unlikely/ruled out
-As per Orthopedic Valgus alignment LLE likely d/t lateral knee joint space narrowing as noted on X-ray, stable operatively from orthopedic standpoint for discharge
-On 10/16/24: patient's daughter had some concerns and was requesting to speak to the surgeon. She does not feel her mother is ready for d/c at this time, per the pt, the daughter feels that her pain is not controlled and she needs to stay because
she is not ready for SNF. The daughter refused to discuss SNF options with case management until speaking to the surgeon. Ortho mentioned lateral rotation of LLE and known significant knee deformity which he is attributing the rotation to but x-rays
were ordered for completeness -- there was nothing out of the ordinary on her x-rays. Ortho thinks that severely arthritic knee and deformity is making things difficult. Working with PT at this point is the best thing to do.
-Per Dr. Chu on 10/17/24, he spoke to patient and patient understands there are many factors contributing to the deformity, and she understood that it will likely improve once the bone is healed and she gets ambulating.
-I called on 10/18/24 patient's daughter Clary, and she wanted/discussed the following with me: 1) Subacute rehab at [facility] for 1-2 weeks; 2) I reviewed patient's pain regimen with Clary and she very strongly requested Oxycodone
scheduled (not PRN) 15 mg Q6H since patient is in severe pain and won't be able to properly work with physical therapy unless pain is controlled; 3) She wants a phone call from the orthopedic surgeon (Dr. Chu later called her and answered all
her questions and concerns to satisfaction)
Constipation
-Continue bowel regimen Miralax Colace Senna
Acute Blood Loss Anemia post-procedure
B12 deficiency
-Stable Hgb; no need for transfusion at this time
-B12 supplementation
History of provoked RLE DVT in early 2024 secondary to immobilization from recent patella fracture
-per patient, her handbell choir director (at [place]) was tapering her off Eliquis prior to current events with hip fracture, goal was to stop the Eliquis altogether b/c her handbell choir director said residual clot was below the right knee
-Eliquis resumed post-procedure 2.5 mg BID
-Doppler US in July 2024 showed continued occlusive clot, likely to persist chronically
-Appreciate hematology input regarding the above question: continue Eliquis 2.5 mg BID
-Follow-up with Dr. Meyer, her handbell choir director/oncologist, to determine when to stop Eliquis
Neuropathy
-home gabapentin 100 mg increased from BID to TID
Other HX
vertigo,
hypertension,
hyperlipidemia,
nephrolithiasis,
history of breast cancer status post lumpectomy and XRT -- on Anastrazole; follow-up with Dr. Meyer.
GERD
DVT Px: SCDBryant Nava.
Code: Full
IP MS
PT/OT appreciated SNF rehab
I called patient's daughter Clary on 10/16/24 and 10/17/24, but she did not answer the phone.
I spoke to the patient on 10/17/24 and she said she is open to obtaining a list of SNFs she can go to.
I called patient's daughter Clary on 10/18/24, and I answered all of her questions and concerns to satisfaction (please see above)
More than 30 minutes spent in discharge including
Final examination of the patient
Summarizing hospital stay
Instructions for continuing care to all relevant caregivers
Preparation of discharge records, prescriptions, and referral forms
Total time spent (in minutes): 38
Anticipated Discharge: Today
Subjective/Interval History
-
Date of Service: October 18, 2024
Patient was seen and examined. She mentioned that is feeling significantly better today, and that her pain is better today.
Objective Data
-
Labs:
Laboratory Results
10/18/24
05:17
WBC 5.8
Hgb 8.5 L
Hct 25.6 L
Plt Count 363
Sodium 138
Potassium 4.4
Chloride 109 H
Carbon Dioxide 28
BUN 12
Creatinine 0.5 L
Glucose 102 H
Calcium 9.0
Vital Signs:
Vital Signs
Temp Pulse Resp BP Pulse Ox
97.4 F 99 20 107/71 94
10/17/24 23:19 10/17/24 23:19 10/17/24 23:19 10/17/24 23:19 10/17/24 23:19
I&O
10/17/24 10/18/24 10/19/24
06:59 06:59 06:59
Intake Total 960 / 960 1859
Balance 960 / 960 1859
[2024-10-18] MEDS: NEURONTIN 100 MG PO ×2 (09:24→16:18)
[2024-10-18] MEDS: MIRALAX 17 GRAMS PO (09:24)
[2024-10-18] MEDS: SENOKOT 17.2 MG PO (09:24)
[2024-10-18] MEDS: ELIQUIS 2.5 MG PO (09:24)
[2024-10-18] MEDS: COLACE 100 MG PO (09:25)
[2024-10-18] MEDS: VITAMIN B-12 1000 MCG PO (09:25)
[2024-10-18] MEDS: PROTONIX 40 MG PO (09:25)
--- NOTE | 2024-10-18 10:24 | CM ---
Addendum entered by Sandra Durán RN 10/18/24 15:48:
Patient's daughter notified of discharge time of 5:00pm.
Addendum entered by Sandra Durán RN 10/18/24 12:51:
Patient's daughter does not want [facility] that oncologist recommended. She want [facility].
Call report to: [phone]
Fax report to: [phone]
Medical necessity and transport forms on chart.
Original Note:
Reviewed the chart notes. IMM reviewed. Call placed to the patient's daughter to discuss SNF options. [facility], [facility], and [facility] has accepted patient. Patient to reach out to daughter to discuss. CM continues to be available to patient/family and
is monitoring medical plan for needs at discharge.
Plan: Discharge to SNF/rehab once a facility is picked.
[2024-10-18] MEDS: CYMBALTA DELAYED RELEASE 40 MG PO (13:34)
[2024-10-18 15:20] VITALS: BP 101/65
--- NOTE | 2024-10-18 15:26 | W.DCSUMMARY ---
Discharge Summary
Discharge Data
Date of Admission: 10/10/24
Date of Discharge: 10/18/24
Total time spent discharging patient (in min): 38
-
Pending Results: No
Hospital Course
74 year old female with past medical history of fractures and falls, recent DVT in early 2024 (received greater than 3 months of anticoagulation), CAD, breast CA s/p lumpectomy, COPD, HTN and vertigo presented after tripping and falling with
resulting pain, and found to have left intertrochanteric femur fracture after presenting to the emergency room. Orthopedics was consulted, and on 10/11/24, patient had left hip intramedullary nailing for left intertrochanteric femur fracture. X-rays
of left lower extremity showed significant lateral knee joint space narrowing which would account for the valgus alignment of her lower extremity. Patient was in significant pain, needing narcotic pain medications. Hematology was consulted for
guidance on Eliquis dosing given residual right lower extremity DVT, and given patient's risk for future falls and bleeding from anticoagulation, recommendation was to continue Eliquis at 2.5 mg BID. Patient would have to follow-up with her
still tender regarding when to stop Eliquis. Patient was stable for discharge.
Discharge Plan
-
Patient Disposition: Prison/SNF
Discharge Diagnosis/Procedures: Left intertrochanteric fracture status post left hip cephalomedullary nail under the direction of Dr. Chu on 10/11/24
Significant lateral knee joint space narrowing resulting in valgus alignment of her lower extremity
Bilateral protrusion acetabulum with secondary degenerative sclerosis and subchondral cystic changes.
Multifactorial due to mechanical fall and age -related osteoporosis
Constipation
Acute Blood Loss Anemia post-procedure
Vitamin B12 deficiency
History of provoked right lower extremity Deep Vein Thrombosis in early 2024 secondary to immobilization from recent patella fracture
Neuropathy
Vertigo
Hypertension
Hyperlipidemia
Nephrolithiasis
History of breast cancer status post lumpectomy and XRT -- on Anastrazole
Gastroesophageal Reflux Disease
Condition: Good
Diet: Low Fat, Low Cholesterol, Low Sodium and 2 Gram Sodium
Activity: With assistance
Additional Activity: Touch down weight bearing to left lower extremity with assistive device for 6 weeks (date of operation was 10/11/24)
Driving Restrictions: Not until seen by your Dr
Bathing Restrictions: OK to Shower
Activity Restrictions/Additional Instructions:
-ACTIVITY: Touch down weight bearing to LLE with assistive device x6 weeks.
-Ice and elevation for edema control.
-Maintain surgical dressing until 7-10 days post-op (date of operation was 10/11/24). Staple removal at 2 weeks post-op (date of operation was 10/11/24). If yousuf are removed at rehab facility, follow up
outpatient with orthopedic surgeon's Dr. Chu's office with new x-rays at 4 weeks post-op (date of operation was 10/11/24).
-Follow-up closely with your still tender/oncologist Dr. Meyer.
Referrals:
Diallo Molina DO [Family Provider, [facility]] - in less than 1 week
Referral Note: Hospital Follow-Up
Additional Discharge Medication Instructions: Oxycodone has been sent as a SCHEDULED medication given patient's severe pain and per patient's daughter's (Clary's) request -- Oxycodone regimen dosing should be adjusted based on how patient is doing,
presence of any side effects of Oxycodone, the determination of the physician at the rehab facility together with discussion with the patient's daughter Clary to see how pain regimen should be adjusted.
The Oxycodone should be weaned off as tolerated to prevent unnecessary continued use of Oxycodone and to prevent Oxycodone side effects.
Prescriptions:
New
docusate sodium 100 mg Capsule
100 mg PO BID Qty: 60 0RF
Eliquis 2.5 mg Tablet
2.5 mg PO BID Qty: 60 1RF
polyethylene glycol 3350 17 gram Powder In Packet
17 g PO DAILY Qty: 30 1RF
oxycodone 15 mg Tablet
15 mg PO Q6H Qty: 7 0RF
sennosides [Nancy-nataliia] 8.6 mg Tablet
17.2 mg PO BID Qty: 60 0RF
acetaminophen 325 mg Tablet
650 mg PO Q4HWA Qty: 20 0RF
Continued
anastrozole 1 mg Tablet
1 mg PO HS
cyanocobalamin (vitamin B-12) 1,000 mcg Tablet
1,000 mcg PO DAILY
diphenhydramine HCl 25 mg Tablet
12.5 mg PO HS PRN (Reason: sleep)
duloxetine 20 mg Capsule,Delayed Release(Dr/Ec)
40 mg PO NOON
cholecalciferol (vitamin D3) 25 mcg (1,000 unit) Tablet
25 mcg PO DAILY
omeprazole 20 mg Tablet,Delayed Release (Dr/Ec)
10 mg PO DAILY
Changed
gabapentin 100 mg Capsule
100 mg PO TID Qty: 0 0RF
Held
baclofen 5 mg Tablet
5 mg PO HS PRN (Reason: muscle spasm)
Hold Instructions: Resume on 11/01/24. Do not continue this medication unless outpatient provider says you should resume this medication.
Discontinued
acetaminophen [Tylenol Extra Strength] 500 mg Tablet
500 mg PO DAILYPRN PRN (Reason: mild pain)
oxycodone 5 mg Tablet
10 mg PO ONCE PRN (Reason: severe pain)
Patient Comments:
10/10/2024, last filled on 06/03/2024 for 20 tablets for 10-day supply per PDMP.
Eliquis 5 mg Tablet
5 mg PO DAILY
Patient Comments:
10/10/2024, per pt., her doctor told her to finish out her Eliquis by taking it once a day for the remainder of her supply starting this past Wednesday (10/06/2024) as they want to wean her off of it.
Discharge Orders:
Discharge Patient (As Directed); Ordered 10/18/24
Ordered By: Suleiamn Gonzalez
Discharge Date and Time
Discharge Date/Time: 10/18/24 17:20
Print Language: EMIRATI
== END 2024-10-18 17:20 | DRG 481 ==
LOC: 2 SOUTH 17:07
PROVIDERS: Internal Medicine; ADMITTING PHYSICIAN Internal Medicine; ATTENDING PHYSICIAN Hospitalist; CONSULT PHYSICIAN Orthopaedic Surgery Hand Surgery; EMERGENCY PHYSICIAN Emergency Medicine; FAMILY PHYSICIAN Student in an Organized Health Care Education/Training Program; OTHER PHYSICIAN Internal Medicine Hematology & Oncology
PROC: 0QS706Z Reposition Left Upper Femur with Intramedullary Internal Fixation Device, Open Approach (ICD-10-PCS; 2024-10-11)
DX: M80.052A Age-related osteoporosis with current pathological fracture, left femur, initial encounter for fracture (principal); D62 Acute posthemorrhagic anemia; I10 Essential (primary) hypertension; I25.10 Atherosclerotic heart disease of native coronary artery without angina pectoris; J43.9 Emphysema, unspecified; F17.200 Nicotine dependence, unspecified, uncomplicated; E78.5 Hyperlipidemia, unspecified; R29.6 Repeated falls; K21.9 Gastro-esophageal reflux disease without esophagitis; M24.7 Protrusio acetabuli; K59.00 Constipation, unspecified; E53.8 Deficiency of other specified B group vitamins; G62.9 Polyneuropathy, unspecified; H91.90 Unspecified hearing loss, unspecified ear; M17.12 Unilateral primary osteoarthritis, left knee; W10.9XXA Fall (on) (from) unspecified stairs and steps, initial encounter; Y93.01 Activity, walking, marching and hiking; Y92.009 Unspecified place in unspecified non-institutional (private) residence as the place of occurrence of the external cause; Z86.718 Personal history of other venous thrombosis and embolism; Z87.81 Personal history of (healed) traumatic fracture; Z85.3 Personal history of malignant neoplasm of breast; Z79.1 Long term (current) use of non-steroidal anti-inflammatories (NSAID); Z79.01 Long term (current) use of anticoagulants; Z87.442 Personal history of urinary calculi; Z91.030 Bee allergy status; Z79.811 Long term (current) use of aromatase inhibitors
CPT/HCPCS: 71046; 73502; 73551; 73552; 76000; 80048; 82607; 82728; 82746; 83540; 83550; 83735; 84100; 85014; 85018; 85025; 85027; 86850; 86900; 86901; 93005; 93970; 96374; 96375; 97110; 97163; 97167; 97530; 97535; 99284; C1713